=== PATIENT | male | born 1985 | race Caucasian/White ===

== ENCOUNTER 2018-09-15 18:29 | Emergency (ER) | payer MEDICAID, SELFPAY ==
[2018-09-15 18:30] VITALS: BP 186/97; PULSE 79; RESP 14; TEMP 36.1; O2SAT 98; BMI 44.7
--- NOTE | 2018-09-15 19:29 | ED.DCSUM_ITS ---
- ER Visit Summary Date of Service: 09/15/18 Chief Complaint: Dental pain History of Present Illness: The patient is a [address] Fritz. He reports that his dentist is Dr. Parekh. He reports he in the process of scheduling to get all of his upper teeth pulled. He has pain in his left maxill sofya canine that began 5 days ago. He describes a throbbing pain. Is 10 out of 10 severity. Is worsened by eating. He is taking Tylenol, ibuprofen, without relief. He is on clindamycin. Physical Examination: Vitals: Stable. Afebrile. Mouth: No trismus. No edema of the floor of the mouth. Pain with percussion of left maxillary canine. His left maxillary lateral incisor is eroded to the gumline. There is widespread dental decay. There is no focal abscess. No trismus or edema of the floor of his mouth. General: A&O x 3. NAD. Cardiovascular exam: Regular rate and rhythm, no murmur, rub or gallop. Respiratory exam: Clear to auscultation bilaterally. No wheezes or stridor. Abdominal exam: Soft, nontender, nondistended, normal bowel sounds. No peritoneal signs. Extremity: No clubbing, cyanosis, or edema. Emergency Department Course and Treatment: Patient is on Suboxone. I discussed them that I will not prescribe opiates because of this. He is already on clindamycin. He reports that he took a dose of Tylenol 30 minutes prior to arrival and a dose of ibuprofen 1 hour ago. Treatment Plan: Patient will be discharged instructions to follow-up with his dentist as soon as possible. Continue his clindamycin. Disposition: To home in improved and stable condition. Impression: 1. Dental pain. This note was generated with [employer] dictation software. It may contain incorrect words, spelling, and punctuation that were not noted in review of the chart prior to signing ED Disposition - Plan for ED Patient: Disposition: Home or Assisted Living Instructions: ED Tooth Pain Referrals: Dentist,Your [STAFF PHYSICIAN] - As soon as possible
--- NOTE | 2018-09-15 19:35 | ED.RN ---
THIS RN WENT SEE AND D/C PT AND PT WAS NO LONGER IN THE ROOM. UNABLE TO ASSESS PT OR PROVIDE PROPER D/C INSTRUCTIONS
== END 2018-09-15 19:35 | disposition home or self-care (01) ==
LOC: ED 19:39
PROVIDERS: Emergency Provider Emergency Medicine; Family Provider Family Medicine; PCP Family Medicine
DX: K08.89 Other specified disorders of teeth and supporting structures (principal); Z72.0 Tobacco use; Z79.2 Long term (current) use of antibiotics

== ENCOUNTER 2018-09-17 14:05 | Emergency (ER) | payer MEDICAID, SELFPAY ==
[2018-09-17 14:08] VITALS: BP 165/86; PULSE 86; RESP 17; TEMP 36.8; O2SAT 93; BMI 46.2
--- NOTE | 2018-09-17 14:25 | ED.VIS.GEN ---
History of Present Illness Chief Complaint: Dental Informant: Patient, Family Onset: Month(s) - Greater than 12 months Context: Sudden Onset Timing: Intermittent, Waxes and wanes Quality: Pain and swelling Location: Left upper incisors and left side of face Current Severity: Moderate Maximum Severity: Moderate Worsened by: Poor dentition Relieved by: Antibiotics and breathing occurs Associated Symptoms: No fever, chills, trismus or change in voice Narrative: Patient with recurrent infection. He apparently has problem with narrow airway and no dentist will extract his teeth. He has to have his teeth extracted operatively. He was referred to [facility]. He apparently has been trying to schedule this for greater than a year. There is no history of rheumatic fever, heart murmur, SBE, IV drug use or being immune suppressed. Prior similar symptoms: Yes Recent Illness/Hospitalization: Yes - Past Medical History (1) Dental abscess Status: Acute (2) Benign hypertension Status: Chronic (3) Depression Status: Chronic (4) Diabetes Status: Chronic (5) History of substance abuse Status: Chronic (6) Morbid obesity Status: Chronic (7) Obstructive sleep apnea Status: Chronic Past Medical History - Allergies and Home Meds Allergies/Adverse Reactions: Allergies No Known Allergies Allergy (Verified 09/17/18 14:06) Primary Care Physician: Chris Fritz MD [Primary Care Provider] - Prior records reviewed: Yes Surgical History: appendectomy Lives: With Family Smoking Status: Current every day smoker - Family History Maternal Family History: Reports: Diabetes, Hypertension Paternal Family History: Reports: Hypertension Review of Systems General: Denies: Chills, Fever, Malaise, Subjective, Sweats, Weight loss Eyes: Denies: Visual changes - bilaterally, Blurred Vision - bilaterally, Diplopia ENT: Reports: - - Facial swelling left side without redness. Denies: Bilateral ear pain, Rhinorrhea, Sore throat Cardiovascular: Denies: Chest pain, Palpitations Respiratory: Denies: Dyspnea, Cough, Dyspnea on exertion, Orthopnea, Paroxysmal nocturnal dyspnea Gastrointestinal: Denies: Nausea, Vomiting Skin: Reports: Abscess. Denies: Rash Neurological: Denies: Headache, Weakness Hematologic: Denies: Easy bruising, Easy bleeding Allergy: Denies: Uticaria, Swelling of the mouth Physical Exam Vital Signs/Narrative: Vital Signs Temp Pulse Resp BP Pulse Ox 04/25/19 14:08 98.3 F 86 17 165/86 H 93 Inital Vital Signs reviewed: Yes General: Well nourished, Well developed, Obese, No Acute Distress Head: Normocephalic, Atraumatic Eyes: Perrl, EOMI ENT: Moist mucous membranes, No rhinorrhea, TM's clear, - - She has significant dental decay involving the dentin and pulp of numerous teeth. Most likely source is decay of the upper left incisors and canine on the left. Teeth are eroded to the gumline. There is no fluctuance. There is spatial welling without evidence of cellulitis. There is no hyperesthesia of the infraorbital nerve. There is no ocular pain. Neck: Supple, Nontender Cardiovascular: Regular rate, Regular rhythm, No murmurs Respiratory: No distress, CTA bilaterally, Chest nontender Skin: Normal color, No rash Neurological: Alert, Oriented x3, Cranial nerves II-XII grossly intact, Normal Strength, Normal Sensation Psychological: Normal affect, Normal Mood Diagnostic/Tx/Re-eval - Medical Decision Making Patient with recurrent dental infection secondary to numerous dental caries. Will prescribe clindamycin and appropriate pain medicine. Explained the patient and family members you will need to contact [facility] to determine why the procedure has not been done. Patient and family member upset. They were informed IM in the emergency position and not a dentist my options are pain medicine and antibiotics. Definitive cares by a dentist. ED Disposition - Plan for ED Patient: Disposition: Home or Assisted Living Diagnosis: Dental abscess, Dental caries extending into pulp Instructions: Dental Abscess Prescriptions: Hydrocodone Bitart/Apap 5-325 [[place] 5MG-325MG] 1 tablet PO Q6H PRN PRN 3 Days #10 tablet PRN Reason: Pain Clindamycin HCl [Cleocin] 300 mg PO Q6H #40 capsule Referrals: Chris Fritz MD [Primary Care Provider] -
[2018-09-17] MEDS: Clindamycin HCl 150 MG Capsule 300 MG PO (14:41)
[2018-09-17 15:04] VITALS: RESP 18
== END 2018-09-17 15:04 | disposition home or self-care (01) ==
LOC: ED 14:47
PROVIDERS: Emergency Provider Emergency Medicine; Family Provider Family Medicine; PCP Family Medicine
DX: K04.7 Periapical abscess without sinus (principal); K02.9 Dental caries, unspecified; I10 Essential (primary) hypertension; E11.9 Type 2 diabetes mellitus without complications; E66.01 Morbid (severe) obesity due to excess calories; G47.33 Obstructive sleep apnea (adult) (pediatric); F17.200 Nicotine dependence, unspecified, uncomplicated; F32.9 Major depressive disorder, single episode, unspecified; Z79.899 Other long term (current) drug therapy
CPT/HCPCS: 99283

== ENCOUNTER 2018-10-22 15:01 | Emergency (ER) | payer MEDICAID, SELFPAY ==
[2018-10-22 15:02] VITALS: BP 135/87; PULSE 93; RESP 17; TEMP 37.3; O2SAT 97; BMI 46.7
--- NOTE | 2018-10-22 15:19 | EKG12_ITS ---
Test Reason : BLEEDING Blood Pressure : / mmHG Vent. Rate : 077 BPM Atrial Rate : 077 BPM P-R Int : 152 ms QRS Dur : 092 ms QT Int : 372 ms P-R-T Axes : 028 030 015 degrees QTc Int : 420 ms Normal sinus rhythm Normal ECG Confirmed by BRANT GUERRA, JACKLYN ([id number]), television news video editor SANGITA HARRIS ([id number]) on 10/26/2018 1:13:43 PM Referred By: FAB Confirmed By:JACKLYN GUO MD
--- NOTE | 2018-10-22 15:20 | ED.VIS.GEN ---
History of Present Illness Chief Complaint: Lower Extremity Injury Detail of Chief Complaint: bleeding varicose vein medial side right ankle Informant: Patient Onset: Today Context: Sudden Onset Timing: Continuous Quality: Leading varicose vein medial side right ankle Location: Showering Current Severity: Pressure wrap in place. Gauze saturated with blood Maximum Severity: Severe Worsened by: Scrubbing Relieved by: Pressure dressing Associated Symptoms: None Narrative: Patient is a 33-year-old male with a BMI of 46.8 who presents with bleeding from varicose vein medial side of right ankle. This occurred while he was scrubbing his skin. He states he lost a lot of blood. He denied orthostatic symptoms. He denied nausea or vomiting. He denied lightheadedness. He denies headache, ocular, visual or auditory symptoms. He denies cardiac or respiratory symptoms. He denies urologic symptoms. Prior similar symptoms: No Recent Illness/Hospitalization: No - Past Medical History (1) History of hypercholesterolemia Status: Acute (2) Benign hypertension Status: Chronic (3) Diabetes Status: Chronic (4) History of substance abuse Status: Chronic (5) Morbid obesity Status: Chronic (6) Obstructive sleep apnea Status: Chronic Past Medical History - Allergies and Home Meds Allergies/Adverse Reactions: Allergies No Known Allergies Allergy (Verified 10/22/18 15:02) Primary Care Physician: Chris Fritz MD [Primary Care Provider] - Prior records reviewed: Yes Surgical History: appendectomy Lives: Alone Smoking Status: Current every day smoker Drugs: - - Per old records history of drug use - Family History Maternal Family History: Reports: Diabetes, Hypertension Paternal Family History: Reports: Hypertension Review of Systems General: Reports: Sweats. Denies: Chills, Fever, Malaise, Subjective Eyes: Denies: Visual changes - bilaterally, Blurred Vision - bilaterally, Diplopia ENT: Denies: Rhinorrhea, Sore throat Cardiovascular: Denies: Chest pain, Palpitations, Heart racing Respiratory: Denies: Dyspnea, Cough, Dyspnea on exertion Gastrointestinal: Denies: Abdominal pain, Nausea, Vomiting, Diarrhea, Melena, Hematochezia Genitourinary: Denies: Dysuria, Hematuria, Frequency Musculoskeletal: Denies: Myalgias, Arthralgias, Neck pain, Back pain, Swelling, Extremity Pain Skin: Reports: Wounds. Denies: Rash Neurological: Denies: Headache, Weakness, Parasthesia, Numbness Endocrine: Denies: Polyuria, Polydipsia Hematologic: Denies: Easy bruising, Easy bleeding Allergy: Denies: Uticaria, Swelling of the mouth, Swelling of the tongue Physical Exam Vital Signs/Narrative: Vital Signs Temp Pulse Resp BP Pulse Ox 10/22/18 15:02 99.2 F H 93 17 135/87 H 97 Inital Vital Signs reviewed: Yes General: Well nourished, Well developed, Obese, No Acute Distress Head: Normocephalic, Atraumatic Eyes: Perrl, EOMI. Negative for: Pale conjunctiva, Scleral icterus, - ENT: Moist mucous membranes, No rhinorrhea Neck: Supple, Nontender, No lymphadenopathy, No JVD Cardiovascular: Regular rate, Regular rhythm, No murmurs, Normal S1, Normal S2 Respiratory: No distress, CTA bilaterally, Chest nontender Abdomen: Soft, Nontender, Nondistended, Normal bowel sounds, No masses Back: Nontender, Normal Inspection Extremities: Nontender, No edema, - - Dressing was removed and bleeding site identified. Eschar noted over bleeding site. Skin: Diaphoresis, - - Patient is flushed. Neurological: Alert, Oriented x3, Cranial nerves II-XII grossly intact, Normal Strength, Normal Sensation Psychological: Normal affect, Normal Mood Diagnostic/Tx/Re-eval Laboratory Results 10/22/18 10/22/18 15:30 15:30 WBC 11.9 H RBC 4.88 Hgb 14.7 Hct 43.2 MCV 88.5 MCH 30.1 MCHC 34.0 RDW 13.5 RDW Differential 43.3 Plt Count 177 MPV 10.9 Immature Gran % (Auto) 1.200 H Neut % (Auto) 61.0 Lymph % (Auto) 26.2 [place] % (Auto) 9.8 Eos % (Auto) 1.5 Baso % (Auto) 0.3 Absolute Neuts (auto) 7.3 Absolute Lymphs (auto) 3.12 Total Counted Not Reportable Sodium 136 Potassium 3.9 Chloride 100 Carbon Dioxide 31.0 Anion Gap 5 BUN 10 Creatinine 0.82 Estim Creat Clear Calc 141.95 Est GFR (MDRD) Af Amer 139 Est GFR (MDRD) Non-Af 115 BUN/Creatinine Ratio 12.1 Glucose 190 H Calcium 8.7 - Rhythm Strip Rhythm Strip: Sinus Rhythm Rate: 82 Ectopy: None - EKG Initial EKG Interpretation: Sinus Rhythm - Ventricular rate of 77. KS interval, cures duration, QT interval and axis are normal. The EKG is normal. - Medical Decision Making Patient with bleeding from varicose vein secondary to trauma. Since he has history of diabetes, substance abuse, hypertension and elevated cholesterol will obtain CBC, BMP and EKG since he is flushed and diaphoretic. This does not represent a vagal response. This may be an adverse reaction to medication and specifically psychotropic meds. Blood sugar is elevated at 190. This is secondary to his diabetes. His work-up was unremarkable. Patient was reassessed at 1600. He is no longer diaphoretic. He states he feels normal. Procedures Procedure(s): Area was prepped draped sterile manner. The area was anesthetized by local metrician with 1% lidocaine, 1 cc. [id number] stitch was placed using 4-0 Vicryl. Bleeding was controlled. ED Disposition - Plan for ED Patient: Disposition: Home or Assisted Living Diagnosis: Bleeding from varicose veins of right lower extremity, Hyperglycemia, unspecified, Diaphoresis Instructions: ED Veins Varicose, ED Hyperglycemia New Susp Diabetes Referrals: Chris Fritz MD [Primary Care Provider] - 5-7 Days Additional Instructions: You should follow-up with Dr. Fritz in 5 to 7 days to have blood sugar reassessed. Your blood sugar was 190.
--- NOTE | 2018-10-22 15:30 | ED.RN ---
PT WITH RUPTURED VERICOSE VEIN. BLEEDING STOPPED. PT DENIES ANY PAIN. REPORTS HE WAS SCRUBBING HIS ANKLE IN THE SHOWER AND IT BURST.
[2018-10-22 15:40] LABS: Absolute Lymphocyte Count 3.12 X10^3/ul (0.83-4.51); Absolute Neutrophil Count 7.3 X10^3/uL (2.0-7.7); Basophil# 0.04 X10^3/uL; Basophil% 0.3 % (0-1); Eosinophil# 0.18 X10^3/uL; Eosinophils% 1.5 % (0-5); Hematocrit 43.2 % (40-54); Hemoglobin 14.7 g/dl (13.0-16.5); Lymphocyte # 3.12 X10^3/ul (4.0); Lymphocyte % 26.2 % (19-41); Mean Corpuscular Hgb 30.1 pg (27.0-32.0); Mean Corpuscular Volume 88.5 fL (80-94); Mean Platelet Vol. 10.9 fl (6.2-12.0); Monocyte# 1.17 X10^3/uL; Monocyte% 9.8 % (0-10); Neutrophil # 7.28 X10^3/uL (2.7-7.7); Platelet Count 177 K/mm3 (150-450); RBC Distribution Width CV 13.5 % (11.6-14.6); RBC Distribution Width SD 43.3 fl (35.1-43.9); Red Blood Count 4.88 M/mm3 (4.6-6.2); White Blood Count 11.9 K/mm3 (4.4-11.0)
[2018-10-22 15:41] LABS: POSITIVE COUNT NO; POSITIVE DIFFERENTIAL NO; POSITIVE MORPHOLOGY NO
[2018-10-22 15:59] LABS: Anion Gap 5 (5-15); BUN 10 mg/dL (7-18); BUN/Creat Ratio 12.1 RATIO (10-20); Calcium,Total 8.7 mg/dL (8.5-10.1); Chloride 100 mmol/L (98-107); Creatinine, Serum 0.82 mg/dL (0.70-1.30); EST Glomerular Filtration Rate 115 mL/min (>60); Est Glom Filt Rate - Afr Amer 139 mL/min (>60); Estimated Creatinine Clearance 141.95 ml/min; Glucose 190 mg/dL (74-106); Potassium 3.9 mmol/L (3.5-5.1); Sodium Level 136 mmol/L (136-145)
== END 2018-10-22 16:42 | disposition home or self-care (01) ==
PROVIDERS: Emergency Provider Emergency Medicine; Family Provider Family Medicine; PCP Family Medicine
DX: I83.891 Varicose veins of right lower extremity with other complications (principal); R61 Generalized hyperhidrosis; E11.65 Type 2 diabetes mellitus with hyperglycemia; I10 Essential (primary) hypertension; E66.01 Morbid (severe) obesity due to excess calories; G47.33 Obstructive sleep apnea (adult) (pediatric); Z68.42 Body mass index [BMI] 45.0-49.9, adult; F17.200 Nicotine dependence, unspecified, uncomplicated; Z79.899 Other long term (current) drug therapy
CPT/HCPCS: 35226; 80048; 85025; 93005; 99285

== ENCOUNTER 2019-03-31 22:33 | Emergency (ER) | payer MEDICAID, SELFPAY ==
[2019-03-31 22:35] VITALS: BP 152/82; PULSE 87; RESP 18; TEMP 37.2; O2SAT 94; BMI 47.7
--- NOTE | 2019-03-31 22:42 | ED.VIS.GEN ---
History of Present Illness Chief Complaint: Wound Informant: Patient Narrative: Stated he accidentally rubbed a varicose vein with a sock and it broke open and bled approximately 30 minutes ago. EMS was called and they place a dressing on it was stopped bleeding. No significant trauma otherwise. He had a different varicose vein bleed a few months ago that required a stitch. He is on no blood thinners. Current severity is mild. - Past Medical History (1) Acute asthma exacerbation Status: Acute (2) Bronchitis Status: Acute (3) Dental abscess Status: Acute (4) History of hypercholesterolemia Status: Acute (5) Benign hypertension Status: Chronic (6) Depression Status: Chronic (7) Diabetes Status: Chronic (8) History of substance abuse Status: Chronic (9) Morbid obesity Status: Chronic (10) Obstructive sleep apnea Status: Chronic Past Medical History - Allergies and Home Meds Allergies/Adverse Reactions: Allergies No Known Allergies Allergy (Verified 10/22/18 15:02) Primary Care Physician: Chris Fritz MD [Primary Care Provider] - Prior records reviewed: Yes Past Medical History: - - See problem list Surgical History: appendectomy Lives: With Family Smoking Status: Current every day smoker Alcohol: None Drugs: None - Family History Maternal Family History: Reports: Diabetes, Hypertension Paternal Family History: Reports: Hypertension Review of Systems General: Denies: Chills, Fever, Sweats Eyes: Denies: Visual changes - bilaterally, Diplopia ENT: Denies: Rhinorrhea, Sore throat Cardiovascular: Denies: Chest pain, Palpitations Respiratory: Denies: Dyspnea, Cough, Dyspnea on exertion Gastrointestinal: Denies: Abdominal pain, Nausea, Vomiting, Diarrhea, Melena, Hematochezia Genitourinary: Denies: Dysuria, Hematuria, Frequency Musculoskeletal: Denies: Back pain, Extremity Pain Skin: Reports: Wounds. Denies: Rash Neurological: Denies: Headache, Weakness, Numbness Physical Exam Vital Signs/Narrative: Vital Signs Temp Pulse Resp BP Pulse Ox 03/31/19 22:35 99.0 F 87 18 152/82 H 94 General: Well nourished, Well developed, No Acute Distress Head: Normocephalic, Atraumatic Eyes: Perrl, EOMI ENT: Moist mucous membranes, No rhinorrhea Neck: Supple, Nontender Cardiovascular: Regular rate, Regular rhythm, No murmurs Respiratory: No distress, CTA bilaterally, Chest nontender Abdomen: Soft, Nontender, Nondistended, Normal bowel sounds Back: Nontender, Normal Inspection Extremities: Nontender, No edema Skin: Normal color, No rash, - - Has a varicose vein on his medial calf that is bleeding further. Neurological: Alert, Oriented x3, Cranial nerves II-XII grossly intact, Normal Strength, Normal Sensation Psychological: Normal affect, Normal Mood Diagnostic/Tx/Re-eval - Medical Decision Making It stopped with pressure alone. His bandage was replaced and Sean wrap was placed. He was watch for 30 minutes with no further bleeding. Resting comfortably. I do not think he needs a stitch in this area will be discharged to follow-up ED Disposition - Plan for ED Patient: Disposition: Home or Assisted Living Diagnosis: Bleeding from varicose vein Instructions: Varicose Veins Referrals: Chris Fritz MD [Primary Care Provider] -
--- NOTE | 2019-03-31 23:31 | ED.RN ---
Educated pt about holding pressure, need for varicose vein specialist. All questions answered, no further concerns.
== END 2019-03-31 23:31 | disposition home or self-care (01) ==
LOC: ED 22:50
PROVIDERS: Emergency Provider Emergency Medicine; Family Provider Family Medicine; PCP Family Medicine
DX: I83.891 Varicose veins of right lower extremity with other complications (principal); J45.909 Unspecified asthma, uncomplicated; E78.00 Pure hypercholesterolemia, unspecified; I10 Essential (primary) hypertension; F32.9 Major depressive disorder, single episode, unspecified; E11.9 Type 2 diabetes mellitus without complications; E66.01 Morbid (severe) obesity due to excess calories; G47.33 Obstructive sleep apnea (adult) (pediatric); F17.200 Nicotine dependence, unspecified, uncomplicated; Z79.84 Long term (current) use of oral hypoglycemic drugs; Z79.899 Other long term (current) drug therapy
CPT/HCPCS: 99284

== ENCOUNTER 2019-06-24 22:24 | Emergency (ER) | payer MEDICAID, SELFPAY ==
[2019-06-24 22:26] VITALS: BP 148/86; PULSE 79; RESP 16; TEMP 36.7; O2SAT 93; BMI 46.7
--- NOTE | 2019-06-24 23:31 | ED.VIS.GEN ---
History of Present Illness Chief Complaint: Lower Extremity Injury Narrative: Patient presents the emergency department out of concern for a DVT. Patient had an unknown vein procedure performed by an unknown physician at [facility]. He has an ultrasound scheduled tomorrow at 1300 hrs. for monitoring of the veins. He states that today he developed some swelling of the proximal inner thigh. He denies any chest pain shortness of breath. No back pain or shoulder pain. No cough. He notes that the rest the leg is not swollen it seems to be confined mostly to the proximal medial thigh. No fevers. He states he is not on any blood thinners and is not on any antibiotics. Past Medical History - Allergies and Home Meds Allergies/Adverse Reactions: Allergies No Known Allergies Allergy (Verified 06/24/19 22:28) Primary Care Physician: Chris Fritz MD [Primary Care Provider] - Surgical History: appendectomy Smoking Status: Current every day smoker - Family History Maternal Family History: Reports: Diabetes, Hypertension Paternal Family History: Reports: Hypertension Review of Systems General: Denies: Chills, Fever, Sweats Eyes: Denies: Visual changes - bilaterally, Diplopia ENT: Denies: Rhinorrhea, Sore throat Cardiovascular: Denies: Chest pain, Palpitations Respiratory: Denies: Dyspnea, Cough, Dyspnea on exertion Gastrointestinal: Denies: Abdominal pain, Nausea, Vomiting, Diarrhea, Melena, Hematochezia Genitourinary: Denies: Dysuria, Hematuria, Frequency Musculoskeletal: Reports: - - See HPI. Denies: Back pain, Extremity Pain Skin: Denies: Rash, Wounds Neurological: Denies: Headache, Weakness, Numbness Physical Exam Vital Signs/Narrative: Vital Signs Temp Pulse Resp BP Pulse Ox 06/24/19 22:26 98.0 F 79 16 148/86 H 93 Inital Vital Signs reviewed: Yes General: Well nourished, Well developed, Obese, No Acute Distress Head: Normocephalic, Atraumatic Eyes: Perrl, EOMI ENT: Moist mucous membranes, No rhinorrhea Neck: Supple, Nontender Cardiovascular: Regular rate, Regular rhythm, No murmurs Respiratory: No distress, CTA bilaterally, Chest nontender Abdomen: Soft, Nontender, Nondistended, Normal bowel sounds Back: Nontender, Normal Inspection Extremities: Nontender, No edema, - - No significant leg swelling when compared to the left side. The right proximal medial thigh shows an area that is slightly swollen with a faint area of erythema. It is not significantly tender. The place that he points out where a needle was inserted into the veins appear otherwise uncomplicated. Skin: Normal color, No rash Neurological: Alert, Oriented x3, Cranial nerves II-XII grossly intact, Normal Strength, Normal Sensation Psychological: Normal affect, Normal Mood Diagnostic/Tx/Re-eval - Medical Decision Making Currently the patient exhibits no signs or symptoms of pulmonary embolism. There is no distal leg swelling to suggest DVT. There is a faint area of erythema and I question whether or not this localized swelling is related to a cellulitis. I am getting start the patient on some Keflex. Also given a dose of Lovenox. He is to call his surgeon in the morning and complete his duplex ultrasound. ED Disposition - Plan for ED Patient: Disposition: Home or Assisted Living Diagnosis: Redness and swelling of thigh Instructions: Cellulitis Prescriptions: Cephalexin [Keflex] 500 mg PO 5X/DAY #28 cap Prescription Printed Additional Instructions: Please call your surgeon's office in the morning. Please go to your ultrasound appointment at 1300.
[2019-06-25] MEDS: Enoxaparin 150 MG/ML Syringe SC
[2019-06-25] MEDS: Cephalexin 250 MG Capsule 500 MG PO
== END 2019-06-25 00:24 | disposition home or self-care (01) ==
PROVIDERS: Emergency Provider Emergency Medicine; PCP Family Medicine
DX: M79.89 Other specified soft tissue disorders (principal); L53.9 Erythematous condition, unspecified; F17.200 Nicotine dependence, unspecified, uncomplicated; E66.9 Obesity, unspecified
CPT/HCPCS: 96372; 99283

== ENCOUNTER 2019-11-21 15:34 | Emergency (ER) | payer MEDICAID, SELFPAY ==
[2019-11-21 15:36] VITALS: BP 135/84; PULSE 105; RESP 17; TEMP 36.6; O2SAT 93; BMI 44.7
--- NOTE | 2019-11-21 15:43 | ED.DCSUM_ITS ---
History of Present Illness Informant: Patient Occurred: Days - 4 days Mechanism/Context: Same level fall, Trip, Slip Usually ambulates: Without assistance Location: left ribs Quality of Pain: Stabbing Current Severity: Moderate Maximum Severity: Moderate Worsened by: movement, deep breathing Relieved by: nothing Associated Symptoms: Negative for: Parasthesias, Weakness, Loss of function, Inability to ambulate, Loss of consciousness, Amnesia Narrative: 34-year-old male presents with left sided rib pain. He was jogging in the park 4 days ago fell on his left side injuring his left ribs. He did not hit his head he did not lose consciousness and he denies any other injuries. He has been having continued left-sided rib pain with deep breathing which prompts his visit to the emergency department today. He is not on blood thinners. He is not short of breath. No coughing or hemoptysis. No abdominal pain or back pain. He has no vomiting he has no hematuria or melena or hematochezia. Rest of his review of systems negative Tetanus Immunization: Unknown Prior similar symptoms: No Recent Illness/Hospitalization: No <Leandro Solitario - Last Filed: 11/21/19 16:54> <Flores Bennett - Last Filed: 11/21/19 17:04> Chief Complaint: Chest Other Past Medical History Prior records reviewed: Yes Past Medical History: - - polysubstance abuse on suboxone Surgical History: appendectomy Smoking Status: Current every day smoker Alcohol: Occasional Drugs: None - Family History Maternal Family History: Reports: Diabetes, Hypertension Paternal Family History: Reports: Hypertension <Leandro Solitario - Last Filed: 11/21/19 16:54> <Flores Bennett - Last Filed: 11/21/19 17:04> - Allergies and Home Meds Allergies/Adverse Reactions: Allergies No Known Allergies Allergy (Verified 11/21/19 15:35) Primary Care Physician: Chris Fritz MD [Primary Care Provider] - Review of Systems All systems negative except as indicated General: Denies: Chills, Fever, Sweats Eyes: Denies: Visual changes - bilaterally, Diplopia ENT: Denies: Rhinorrhea, Sore throat Cardiovascular: Denies: Chest pain, Palpitations Respiratory: Reports: - - left rib pain. Denies: Dyspnea, Cough, Sputum, Dyspnea on exertion, Orthopnea, Paroxysmal nocturnal dyspnea Gastrointestinal: Denies: Abdominal pain, Nausea, Vomiting, Diarrhea, Melena, Hematochezia Genitourinary: Denies: Dysuria, Hematuria, Frequency Musculoskeletal: Denies: Neck pain, Back pain, Extremity Pain Skin: Denies: Rash, Wounds Neurological: Denies: Headache, Weakness, Numbness <Leandro Solitario - Last Filed: 11/21/19 16:54> Physical Exam Vital Signs/Narrative: Vital Signs Temp Pulse Resp BP Pulse Ox 11/21/19 15:36 97.8 F 105 H 17 135/84 H 93 Inital Vital Signs reviewed: Yes General: Well nourished, Well developed Head: Normocephalic, Atraumatic Eyes: Perrl, EOMI ENT: TM's clear, No hemotympanum or drainage, No trauma Neck: Nontender, Full ROM. Negative for: Spinal Tenderness, Paraspinal Tenderness Cardiovascular: Regular rate, Regular rhythm, No murmurs Respiratory: No distress, CTA bilaterally, Chest tenderness - Normal inspection of chest and back and left ribs. No bruising or swelling. He is diffusely tender mostly under his left nipple. No crepitus is palpated. Abdomen: Soft, Nontender, Nondistended, Normal bowel sounds Back: Nontender. Negative for: CVA Tenderness - Right, CVA Tenderness - Left, Spinal Tenderness, Paraspinal Tenderness Skin: Normal color, No rash Neurological: Alert, Oriented x3, Cranial nerves II-XII grossly intact, Normal Strength, Normal Sensation Psychological: Normal affect, Normal Mood <Leandro Solitario - Last Filed: 11/21/19 16:54> Vital Signs/Narrative: Vital Signs Temp Pulse Resp BP Pulse Ox 11/21/19 15:36 97.8 F 105 H 17 135/84 H 93 <Flores Bennett - Last Filed: 11/21/19 17:04> Diagnostic/Tx/Re-eval Impressions Ribs w/Chest X-Ray 11/21/19 15:50 IMPRESSION: RIBS: Normal x-ray examination of the ribs. CHEST: No acute cardiopulmonary disease or major interval change. Electronically Signed: Laith Garcia DO at 16:51 EDT Tel [phone], Service support , 11/21/19 15:50 Xray Ribs [Ribs Uni Min 3V w/PA Chest] [RAD] Stat - Medical Decision Making Patient declined analgesia. X-ray of the chest with a left-sided rib series interpreted by the emergency physician and the radiologist shows no acute abnormality. Patient is on Suboxone and does not wish to have a prescription for anti- inflammatories. He will ice he will rest and follow-up with his doctor return for worsening symptoms which we discussed. <Leandro Solitario - Last Filed: 11/21/19 16:54> - Medical Decision Making Patient seen and evaluated with physicians educational assistant. Patient was independently seen and examined. Patient presents with left anterior rib pain after a fall 4 days ago. He denies shortness of breath but does report increased pain with deep breath. Head neck examination unremarkable. Heart is regular rate and rhythm. Lung sounds are clear and equal bilaterally. Reproducible chest wall tenderness is noted of the left anterior chest. No crepitus noted. Abdomen is soft and nontender. Neuro exam unremarkable. Rib series obtained and reveals no evidence of acute fracture. No pneumothorax noted. Disposition: Discharge Impression: Rib contusion <Flores Bennett - Last Filed: 11/21/19 17:04> ED Disposition <Leandro Solitario - Last Filed: 11/21/19 16:54> <Flores Bennett - Last Filed: 11/21/19 17:04> - Plan for ED Patient: Disposition: Home or Assisted Living Diagnosis: Contusion of rib on left side, History of substance abuse Instructions: ED CHEST CONTUSION Referrals: Chris Fritz MD [Primary Care Provider] -
--- NOTE | 2019-11-21 15:50 | RAD_ITS ---
STUDY: X-RAY - UNILATERAL RIBS ( LEFT ) WITH CHEST REASON FOR EXAM: Male, 34 years old. Fall while running. Left-sided chest pain. TECHNIQUE - RIBS: 4 view(s) of the ribs. TECHNIQUE - CHEST: Single PA view of the chest. COMPARISON: Chest, May 22, 2016. FINDINGS - RIBS: Normal visualized ribs without a demonstrated fracture. FINDINGS - CHEST: The lungs are clear and expanded. There is no demonstrated pleural abnormality. Normal size heart. Normal mediastinum and luis. Normal visualized pulmonary arteries. Normal visualized aortic arch and descending thoracic aorta. Normal visualized thoracic spine. Normal visualized ribs, clavicles, and shoulders. There is no demonstrated abnormality of the visualized soft tissue structures of the upper abdomen. RAD/Ribs Uni Min 3V w/PA Chest IMPRESSION: RIBS: Normal x-ray examination of the ribs. CHEST: No acute cardiopulmonary disease or major interval change. Electronically Signed: Laith Garcia DO at 16:51 EDT Tel [phone], Service support ,
== END 2019-11-21 17:03 | disposition home or self-care (01) ==
PROVIDERS: Emergency Provider Physician Assistant Medical; PCP Family Medicine
DX: S20.212A Contusion of left front wall of thorax, initial encounter (principal); F17.200 Nicotine dependence, unspecified, uncomplicated; F19.10 Other psychoactive substance abuse, uncomplicated; W18.30XA Fall on same level, unspecified, initial encounter; Y93.02 Activity, running; Y92.830 Public park as the place of occurrence of the external cause; Y99.8 Other external cause status
CPT/HCPCS: 71101; 99282

== ENCOUNTER → 2024-08-23 | Outpatient (CLI) | payer MEDICAID, SELFPAY ==
--- NOTE | 2024-08-23 15:20 | CT_ITS ---
PROCEDURE: SINUS/FACIAL BONE REASON FOR EXAM: OTHER CHRONIC SINUSITIS TECHNIQUE: CT of the paranasal sinuses without contrast. Coronal and Sagittal reconstruction series were provided. One or more dose reduction techniques were used (e.g., Automated exposure control, adjustment of the mA and/or kV according to patient size, use of iterative reconstruction technique). COMPARISON: None. FINDINGS: Frontal: Unremarkable. Ethmoid: Unremarkable. Sphenoid: Unremarkable. Maxillary: Partial opacification/mucosal thickening of the right maxillary sinus. Left maxillary sinuses unremarkable. Turbinates: Symmetrical. Nasal Septum: Midline. Mastoids/Middle Ears: Unremarkable. CT/Sinus/Facial Bone IMPRESSION: Mucosal thickening/partial opacification of the right maxillary sinus. Reading Location: [id number]
== END | disposition home or self-care (01) ==
LOC: CT 15:13
PROVIDERS: PCP Family Medicine; Referring Provider Otolaryngology; Visit Provider Otolaryngology
DX: J32.8 Other chronic sinusitis (principal)
CPT/HCPCS: 70486

== ENCOUNTER 2025-03-02 12:49 | Observation (INO) | payer MEDICAID, SELFPAY ==
[2025-03-02] VITALS (8 sets, daily range): BP systolic 119–158; BP diastolic 58–98; PULSE 51–78; RESP 16–26; TEMP 36.1–37.1; O2SAT 95–98; BMI 44.1
[2025-03-02] MEDS: 0.9% Normal Saline (1000mL) 1,000 ML 999 ML IV (13:33)
[2025-03-02] MEDS: Ampicillin/Sulbactam 3 GM in 0.9% Normal Saline (100mL MB+) 100 ML IV ×2 (13:34→19:13)
[2025-03-02] MEDS: Lidocaine 1% (20 ml mdv) 20 ML Vial INFILT (13:34)
[2025-03-02 13:37] LABS: Hematocrit 46.7 % (40-54); Hemoglobin 15.7 g/dL (13.0-16.5); Immature Granulocytes Count 0.120 X10^3/uL (0.0-0.0); Mean Corp Hgb Conc 33.6 g/dL (32-36); Mean Corpuscular Volume 86.6 fL (80-94); Mean Platelet Vol. 10.9 fl (6.2-12.0); NRBC Flagged by Analyzer 0 % (0-5); Platelet Count 178 K/mm3 (150-450); RBC Distribution Width CV 13.3 % (11.6-14.6); RBC Distribution Width SD 41.7 fl (35.1-43.9); Red Blood Count 5.39 M/mm3 (4.6-6.2); White Blood Count 11.8 K/mm3 (4.4-11.0)
[2025-03-02 13:47] LABS: Partial Thromboplast Time 28.5 Seconds (24.1-36.2); Prothrombin Time (Protime)PT. 14.0 SECONDS (11.7-14.9)
[2025-03-02 13:57] LABS: Mucous, Urine 0 SEEN /hpf (<or=2+); Red Blood Cells-Urine 0 SEEN /hpf (0-5); Squamous Epithelial Cells - UA 0 SEEN /hpf (0-5)
[2025-03-02 13:59] LABS: AST(SGOT) 20 U/L (<=37); Alanine Aminotransfer ALT/SGPT 16 U/L (<=46); Albumin, Serum 4.4 g/dL (3.5-5.0); Alkaline Phosphatase 99 U/L (40-129); Anion Gap 11 (5-15); BUN 7 mg/dL (4-19); BUN/Creat Ratio 9.9 RATIO (10-20); Calcium,Total 9.1 mg/dL (7.6-11.0); Carbon Dioxide 29.3 mmol/L (21.0-32.0); Chloride 98 mmol/L (98-108); Estimated Creatinine Clearance 195.06 ml/min (50-250); Globulin 3.9 g/dL (2.2-4.2); Glucose 207 mg/dL (70-99); Potassium 3.4 mmol/L (3.3-5.1)
[2025-03-02 14:03] LABS: Color, Urine Yellow (Yellow); Glucose, Dipstick 50 mg/dl (Normal); Ketone-Dipstick 5 mg/dl (Negative); Leukocyte Esterase-Dipstick 25 /ul (Negative); Nitrite-Dipstick Negative (Negative); Occult Blood-Urine 10 /ul (Negative); Protein-Dipstick 100 mg/dl (Negative); Specific Gravity, Urine 1.025 (1.002-1.030); Urine Bilirubin Dipstick Negative (Negative)
--- NOTE | 2025-03-02 14:40 | EX.ED.DYSGE1 ---
HPI History of Present Illness Chief Complaint: Nausea/Vomiting Detail of Chief Complaint: Nausea vomiting, polydipsia, polyuria and abscess left groin Informant: patient Onset/Context/Timing Onset: Days and Weeks (Infection noted approxi-1 week ago.) Context: Sudden Onset Timing: Continuous Quality: Abscess left groin Location: Left groin between the scrotum and proximal medial thigh Current Severity: Moderate Maximum Severity: Moderate Worsened by: Walking, palpation Relieved by: Nothing Associated Symptoms Associated Symptoms: Chills and attempted to aspirate/squeeze pus out yesterday Narrative Narrative: Patient is a 40-year-old gentleman. He has history of diabetes, obesity, asthma, obstructive sleep apnea on Suboxone for the past 10 years. He has prior history of opiate dependency. Has been opiate free other than Suboxone for 12 years. He presents because of chills, nausea vomiting and abscess left groin area. Patient has no allergies to antibiotics. Patient does endorse probably dip Iesha, polyuria and nocturia. Prior similar symptoms: No Recent Illness/Hospitalization: No PFSH PFS Medical History Benign hypertension Depression Diabetes Acute asthma exacerbation Morbid obesity History of substance abuse Obstructive sleep apnea History of hypercholesterolemia Home Medications ?Medication ?Instructions ?Recorded ?Last Taken ?Type lisinopril 40 mg tablet 40 mg PO DAILY 04/15/13 05/22/16 History buprenorphine 8 mg-naloxone 2 mg 12 ea sublingual DAILY 04/13/15 05/22/16 History sublingual film (Suboxone) bisoprolol 5 1 tab PO DAILY 05/22/16 05/22/16 History mg-hydrochlorothiazide 6.25 mg tablet Allergy/AdvReac Type Severity Reaction Status Date / Time No Known Allergies Allergy Verified 03/02/25 12:59 Family History no significant family his Surgical History Total knee replacement status History of appendectomy Social History household members: family current occupational status: unemployed Smoking Status: Current every day smoker tobacco type: cigarettes ROS ROS ED Constitutional Constitutional ED: Reports chills and sweats; Denies fever(s) Eyes Eyes: Denies blurry vision or change in vision ENT ENT ED: Denies ear pain, rhinorrhea or sore throat Cardiovascular Cardiovascular: Denies chest pain or palpitations Respiratory/Chest Respiratory/Chest: Denies cough, dyspnea or dyspnea on exertion Gastrointestinal Gastrointestinal: Reports nausea and vomiting; Denies abdominal pain or diarrhea Genitourinary Genitourinary ED: Reports urinary frequency; Denies dysuria or hematuria Musculoskeletal Musculoskeletal: Denies arthralgias or myalgias Integumentary Reports abscess and rash Neurologic Neurologic: Reports weakness; Denies headache(s) or paresthesias Endocrine Endocrinology: Reports polydipsia and polyuria; Denies cold intolerance or heat intolerance Hematologic/Lymphatic Hematologic/Lymphatic: Reports systems reviewed and no addt'l complaints, except as documented EXAM Physical Exam Const Vital Signs: 03/02/25 12:55 03/02/25 13:03 03/02/25 14:00 Temperature 97.5 F L 97.5 F L 98.7 F Temperature Source Oral Oral Oral Pulse Rate 73 61 51 L Respiratory Rate 26 H 22 H 17 Blood Pressure 135/82 H 139/58 H 147/98 H Blood Pressure Mean 99 85 114 Pulse Ox 98 97 95 Oxygen Delivery Method Room Air Room Air Room Air 03/02/25 14:49 Temperature Temperature Source Pulse Rate Respiratory Rate Blood Pressure Blood Pressure Mean Pulse Ox Oxygen Delivery Method Room Air Positive well nourished and well developed Constitutional Narrative: Patient is flushed and appears ill. Vital signs are remarkable for tachypnea and elevated blood pressure. General Appearance ED: well developed HEENT Reports dry mucous membranes HEENT Narrative: Head is atraumatic and normocephalic. Ears normal. Posterior pharynx is normal Mouth ED: Yes dry mucous membranes Mouth: dry mucous membranes Eyes PERRL and EOMs intact bilaterally General Eye ED: Negative for pale conjunctiva or scleral icterus Neck no lymphadenopathy, supple and no JVD Chest Wall inspection of chest normal and palpation of chest normal Resp normal respiratory effort and clear to auscultation bilaterally Cardio regular rate, regular rhythm, S1 normal heart sound, S2 normal heart sound and no murmurs GI normal to inspection, nondistended, normoactive bowel sounds, non-tender, non-distended and no masses; Negative for hepatosplenomegaly Narrative: Patient has an abscess between his scrotum and thigh. It does not involve the scrotum. There is left inguinal lymphadenopathy. There is fluctuance in the area with cellulitis as well Extremity Negative for normal to inspection Extremity Narrative: Chronic venous stasis dermatitis. Neuro oriented x3 and CN's II-XII intact bilaterally Sensorium / Orientation: alert Psych mental status grossly normal Skin No no rashes or lesions noted and No no wounds Skin Narrative: Abscess with cellulitis left groin region Sepsis Attestation Sepsis Alert: Yes Sepsis Attestation: Agree w/Sepsis Date exam was performed: 03/02/25 Time exam was performed: 13:12 Possible Source of Sepsis: Skin/soft tissue and Wound Sepsis Organ Dysfunction Criteria Present: Lactic Acid > 2 mmol/L Supportive Findings: Patient by definition does not have sepsis since he only has 1 endorgan dysfunction i.e. like elevated lactate. MDM MDM MDM Narrative Medical decision making narrative: With patient being tachypneic obvious source of infection concerned he may have sepsis. Sepsis workup was initiated. Blood cultures were obtained. Patient will require I&D of his left groin area abscess. Will obtain EKG to assess for any dysrhythmia or ischemic changes. Since he is diabetic comprehensive metabolic panel was obtained to assess CO2 anion gap as well as renal function. CBC to assess white count differential. Lactate was obtained as well. UA to assess for ketones, specific gravity. Doubt he has a urinary tract infection. History & Record Review Additional record(s) reviewed:: Prior outpatient record (Outpatient reports for obstructive sleep apnea from outside facility noted. Otherwise no records available through [facility] Lab Data Attestation: I reviewed the patient's lab results. Lab results narrative: White count is slightly elevated 11.8 thousand with no bandemia. H&H is normal. Comprehensive metabolic panel is marked for glucose of 207 with normal CO2 anion gap. Lactate is elevated 2.4. Urinalysis unremarkable specific gravity 1.025 with protein, glucose and ketones noted. Microscopic has 0 RBCs, WBCs and bacteria. Labs: Laboratory Results - last 24 hr 03/02/25 03/02/25 13:25 13:45 WBC 11.8 H RBC 5.39 Hgb 15.7 Hct 46.7 MCV 86.6 MCH 29.1 MCHC 33.6 RDW Std Deviation 41.7 RDW Coeff of Jas 13.3 Plt Count 178 MPV 10.9 Immature Gran % (Auto) 1.000 H Neut % (Auto) 70.0 Lymph % (Auto) 17.8 L Hendricks % (Auto) 9.5 Eos % (Auto) 1.4 Baso % (Auto) 0.3 Absolute Neuts (auto) 8.2 H Absolute Lymphs (auto) 2.09 Nucleated RBC % 0 PT 14.0 INR 1.1 APTT 28.5 Sodium 137 Potassium 3.4 Chloride 98 Carbon Dioxide 29.3 Anion Gap 11 BUN 7 Creatinine 0.76 Estim Creat Clear Calc 195.06 Est GFR (MDRD) Non-Af 117 BUN/Creatinine Ratio 9.9 L Glucose 207 H Lactic Acid 2.4 H* Calcium 9.1 Total Bilirubin 0.46 AST 20 ALT 16 Alkaline Phosphatase 99 Total Protein 8.3 Albumin 4.4 Globulin 3.9 Albumin/Globulin Ratio 1.1 Urine Color Yellow Urine Clarity Sl. Cloudy Urine pH 6.0 Ur Specific [place] 1.025 Urine Protein 100 H Urine Glucose (UA) 50 H Urine Ketones 5 H Urine Occult Blood 10 H Urine Nitrite Negative Urine Bilirubin Negative Urine Urobilinogen Normal Ur Leukocyte Esterase 25 H Urine RBC 0 SEEN Urine WBC 0 SEEN Ur Squamous Epith Cells 0 SEEN Urine Bacteria 0 SEEN Urine Mucus 0 SEEN EKG Initial EKG: Attestation: I personally reviewed and interpreted this EKG as follows: Interpretation: Sinus Rhythm (Mary is a 59. ME interval is 154 ms. Cures duration 96 ms. QT duration 424 ms. [place] is normal) Management Discussion w/another healthcare provider: Hospitalist (Case discussed with Dr. Naresh Steiner.) Treatment and Re-Evaluation :: Patient was started on Unasyn and vancomycin per sepsis treatment for skin infection. Since this is an abscess concerned this may represent MRSA and reason vancomycin was added to the Unasyn. Procedures Other Procedures Procedure(s): Patient was prepped in sterile manner. Area was cleansed with surgical lens. Abscess was anesthetized by local metrician and field block. Incision was made with 10 blade. Incision was 2 cm. There was purulent material that noted. Culture was obtained. Blunt dissection was undertaken and wick was placed after the cavity was irrigated. Discharge Plan Dx/Rx/DC Orders Clinical Impression: Abscess or cellulitis of groin, Type 2 diabetes mellitus with hyperglycemia, without long-term current use of insulin, Benign hypertension, Obstructive sleep apnea, History of substance abuse, History of hypercholesterolemia, Adult BMI 40.0-44.9 kg/sq m Disposition Disposition: Acute Care Hospital [facility]
[2025-03-02] MEDS: Vancomycin HCl 2,000 MG in 0.9% Normal Saline (500mL Bag) 500 ML 250 MG IV (15:03)
--- NOTE | 2025-03-02 15:15 | PCM.HP.STD ---
HPI - General General Date of Service: 03/02/25 Chief Complaint: Left groin abscess HPI Narrative KAELA HUFF, is a 40 M who presents with left groin abscess. He tried squeezing on his own and took a doxycycline that he had leftover from a previous infection. Afterwards did cause him to feel nauseated and throw up. Stated that he only threw up 1 time. So presented to the emergency room where he underwent an I&D by Dr. Gonzalez at bedside and was noted to have purulence expressed from the wound. He did have an elevated lactic acid of 2.4. Patient otherwise feels well at this time. He did have some chills and diaphoresis but overall feels better at this time. In the emergency room, he received IV fluids, Unasyn and vancomycin. Patient is a type II diabetic but does not take any medications. States that his blood sugars usually run to the 100s to 110s. Occasional get up into the 160s. [ ] [facility] Medical History Benign hypertension Depression Diabetes Acute asthma exacerbation Morbid obesity History of substance abuse Obstructive sleep apnea History of hypercholesterolemia Home Medications ?Medication ?Instructions ?Recorded ?Last Taken ?Type lisinopril 40 mg tablet 40 mg PO DAILY 04/15/13 05/22/16 History buprenorphine 8 mg-naloxone 2 mg 12 ea sublingual DAILY 04/13/15 05/22/16 History sublingual film (Suboxone) bisoprolol 5 1 tab PO DAILY 05/22/16 05/22/16 History mg-hydrochlorothiazide 6.25 mg tablet Allergy/AdvReac Type Severity Reaction Status Date / Time No Known Allergies Allergy Verified 03/02/25 12:59 Family History no significant family his Surgical History Total knee replacement status History of appendectomy Social History household members: family current occupational status: unemployed Smoking Status: Current every day smoker tobacco type: cigarettes ROS ROS Narrative All review of systems were negative except as mentioned above in the history of present illness and the other review of systems. Vital Signs Vital Signs Vital Signs: 03/02/25 12:55 03/02/25 13:03 03/02/25 14:00 Temperature 36.4 C L 36.4 C L 37.1 C Temperature Source Oral Oral Oral Pulse Rate 73 61 51 L Respiratory Rate 26 H 22 H 17 Blood Pressure 135/82 H 139/58 H 147/98 H Blood Pressure Mean 99 85 114 Pulse Ox 98 97 95 Oxygen Delivery Method Room Air Room Air Room Air 03/02/25 14:49 03/02/25 15:00 Temperature 37.1 C Temperature Source Oral Pulse Rate 78 Respiratory Rate 17 Blood Pressure 149/80 H Blood Pressure Mean 103 Pulse Ox 98 Oxygen Delivery Method Room Air Weight Weight: 147.8 kg Body Mass Index (BMI) 44.1 Physical Exam Const alert and no apparent distress Constitutional Narrative: Appears very comfortable. Afebrile. No diaphoresis. HEENT normocephalic and head/scalp atraumatic Resp normal respiratory effort, no retractions, no use of accessory muscles and clear to auscultation bilaterally Cardio regular rate, regular rhythm, S1 normal heart sound and S2 normal heart sound GI normal to inspection, nondistended, normoactive bowel sounds, soft to palpation, non-tender and non-distended Extremity Extremity Narrative: Bilateral varicose veins lower extremities. Skin Skin Narrative: Left inguinal incision with packing. Area overall appears clean and intact. No purulence was expressed on my evaluation post incision and drainage. Psych affect normal Results Lab / Micro Data 03/02/25 13:25 03/02/25 13:25 Labs: Laboratory Results - last 24 hr 03/02/25 13:25: WBC 11.8 H, RBC 5.39, Hgb 15.7, Hct 46.7, MCV 86.6, MCH 29.1, MCHC 33.6, RDW Std Deviation 41.7, RDW Coeff of Jas 13.3, Plt Count 178, MPV 10.9, Immature Gran % (Auto) 1.000 H, Neut % (Auto) 70.0, Lymph % (Auto) 17.8 L, [place] % (Auto) 9.5, Eos % (Auto) 1.4, Baso % (Auto) 0.3, Absolute Neuts (auto) 8.2 H, Absolute Lymphs (auto) 2.09, Nucleated RBC % 0, PT 14.0, INR 1.1, APTT 28.5, Sodium 137, Potassium 3.4, Chloride 98, Carbon Dioxide 29.3, Anion Gap 11, BUN 7, Creatinine 0.76, Estim Creat Clear Calc 195.06, Est GFR (MDRD) Non-Af 117, BUN/Creatinine Ratio 9.9 L, Glucose 207 H, Lactic Acid 2.4 H*, Calcium 9.1, Total Bilirubin 0.46, AST 20, ALT 16, Alkaline Phosphatase 99, Total Protein 8.3, Albumin 4.4, Globulin 3.9, Albumin/Globulin Ratio 1.1 03/02/25 13:45: Urine Color Yellow, Urine Clarity Sl. Cloudy, Urine pH 6.0, Ur Specific [place] 1.025, Urine Protein 100 H, Urine Glucose (UA) 50 H, Urine Ketones 5 H, Urine Occult Blood 10 H, Urine Nitrite Negative, Urine Bilirubin Negative, Urine Urobilinogen Normal, Ur Leukocyte Esterase 25 H, Urine RBC 0 SEEN, Urine WBC 0 SEEN, Ur Squamous Epith Cells 0 SEEN, Urine Bacteria 0 SEEN, Urine Mucus 0 SEEN Assessment & Plan Assessment/Plan (1) Abscess or cellulitis of groin: PLAN: Clinically not septic at this time. I&D at bedside by the emergency room physician Wait on final culture results In the meantime continue with antibiotics with ampicillin/sulbactam and vancomycin Wound care to assist with managing the wound. PLAN: Plan Transient nausea and vomiting: X 1 per the patient. Supportive management at this time. Lactic acidosis: Lactic acid 2.4. Clinically currently the patient is stable but does appear dehydrated based on specific gravity of 1.025 on his urinalysis. Will give IV fluids. Diabetes mellitus type 2: Not on any medications. States that his blood sugars typically are in the 100s to 110s. Patient # scale insulin. Check an A1c. Morbid obesity: Complicates care and recovery. History of opiate abuse: Continue with Suboxone. Reviewed his OARRS that confirms that he is actually receiving that. Avoid narcotics for pain. Patient will have acetaminophen and ketorolac as needed. Hypertension: Hold off on his antihypertensives at this time given the lactic acidosis and dehydration he is currently dealing with. VTE prophylaxis with enoxaparin 40 mg twice daily CODE STATUS: Addressed with the patient. Patient wishes to be full code. Charges/Coding Visit Charges Inpatient E&M: 13153 Init Hosp L2
--- NOTE | 2025-03-02 15:56 | PHA.PHARE_ITS ---
Consult Antibiotic Management Pharmacy has been consulted to manage selected antibiotic: Vancomycin Type of Intervention Type of Consult: New start Suspected Infection Suspected Infection: Skin/Soft tissue Prior Doses of Antibiotics Prior Doses of Antibiotics Received/Current Regimen: received vanc 2000mg IV x1 in E.R. starting at 15:03 today Labs Labs: Sodium 137 mmol/L (133-145) 03/02/25 13:25 Potassium 3.4 mmol/L (3.3-5.1) 03/02/25 13:25 Chloride 98 mmol/L (98-108) 03/02/25 13:25 Carbon Dioxide 29.3 mmol/L (21.0-32.0) 03/02/25 13:25 Anion Gap 11 (5-15) 03/02/25 13:25 BUN 7 mg/dL (4-19) 03/02/25 13:25 Creatinine 0.76 mg/dL (0.70-1.20) 03/02/25 13:25 Est GFR (MDRD) Non-Af 117 (>60) 03/02/25 13:25 BUN/Creatinine Ratio 9.9 RATIO (10-20) L 03/02/25 13:25 Glucose 207 mg/dL (70-99) H 03/02/25 13:25 Dosing Weight Weight used for dosin.8 kg Estimated Creatinine Clearance Estimated Creatinine Clearance: 195 ml/min Goal Trough Goal Trough: 10-15 mcg/mL Pharmacy Plan for Drug Dosing Pharmacy Plan for Drug Dosing: Starting 12 hours after the E.R. dose, continue with vanc 1750mg IV q12h per [facility] dosing protocol. Check a vanc trough before the 4th overall dose. Pharmacy Service will continue to monitor and adjust dosing as required. Follow-Up Labs Follow-Up Labs: Trough: Vancomycin Date/Time Labs Ordered Labs to be done on [date and time ordered]: 03/04/25 02:30
[2025-03-02] MEDS: 0.9% Normal Saline (1000mL) 1,000 ML 150 ML IV (16:04)
[2025-03-02] MEDS: CLARIFY ORDER NOTE (16:05)
[2025-03-02 17:31] LABS: Reflex Lactate? Y
[2025-03-02] MEDS: Nicotine (PBKC) 21 MG Patch TD (18:34)
[2025-03-02] MEDS: 0.9% Normal Saline (250mL Bag) 250 ML IV (19:18)
[2025-03-03] MEDS: Ampicillin/Sulbactam 3 GM in 0.9% Normal Saline (100mL MB+) 100 ML IV ×5 (00:18→23:32)
[2025-03-03 03:00] VITALS: BP 126/77; PULSE 59; RESP 16; TEMP 36.9; O2SAT 96
[2025-03-03] MEDS: Vancomycin HCl 1,750 MG in 0.9% Normal Saline (500mL Bag) 500 ML 250 MG IV ×2 (03:07→15:35)
[2025-03-03 06:26] LABS: Hematocrit 43.6 % (40-54); Hemoglobin 14.7 g/dL (13.0-16.5); Immature Granulocytes Count 0.090 X10^3/uL (0.0-0.0); Mean Corp Hgb Conc 33.7 g/dL (32-36); Mean Corpuscular Volume 86.7 fL (80-94); Mean Platelet Vol. 11.1 fl (6.2-12.0); NRBC Flagged by Analyzer 0 % (0-5); Platelet Count 172 K/mm3 (150-450); RBC Distribution Width CV 13.3 % (11.6-14.6); RBC Distribution Width SD 42.3 fl (35.1-43.9); Red Blood Count 5.03 M/mm3 (4.6-6.2); White Blood Count 10.9 K/mm3 (4.4-11.0)
[2025-03-03 06:51] LABS: Anion Gap 8 (5-15); BUN 7 mg/dL (4-19); BUN/Creat Ratio 10.2 RATIO (10-20); Calcium,Total 9.0 mg/dL (7.6-11.0); Carbon Dioxide 28.7 mmol/L (21.0-32.0); Chloride 103 mmol/L (98-108); Estimated Creatinine Clearance 208.80 ml/min (50-250); Glucose 137 mg/dL (70-99); Potassium 4.2 mmol/L (3.3-5.1)
--- NOTE | 2025-03-03 07:42 | PN.HOSP_ITS ---
Reason for Visit Chief Complaint: Left groin abscess Objective Data Objective Data Vital Signs: Vital Signs Temp Pulse Resp BP Pulse Ox O2 Del Method 98.5 F 59 L 16 126/77 H 96 Room Air 03/03/25 03:00 03/03/25 03:00 03/03/25 03:00 03/03/25 03:00 03/03/25 03:00 03/03/25 03:00 Oxygen Delivery Method Room Air Weight: 325 lb 13.491 oz Body Mass Index (BMI) 44.1 Intake & Output: Intake and Output for Last 24 Hours 03/01/25 03/02/25 03/03/25 23:59 23:59 23:59 Intake Total 2420 / 2420 635 / 635 Balance 2420 / 2420 635 / 635 Lab / Micro Data 03/03/25 05:43 03/03/25 05:43 Labs: Laboratory Results - last 24 hr 03/02/25 13:25: WBC 11.8 H, RBC 5.39, Hgb 15.7, Hct 46.7, MCV 86.6, MCH 29.1, MCHC 33.6, RDW Std Deviation 41.7, RDW Coeff of Jas 13.3, Plt Count 178, MPV 10.9, Immature Gran % (Auto) 1.000 H, Neut % (Auto) 70.0, Lymph % (Auto) 17.8 L, [place] % (Auto) 9.5, Eos % (Auto) 1.4, Baso % (Auto) 0.3, Absolute Neuts (auto) 8.2 H, Absolute Lymphs (auto) 2.09, Nucleated RBC % 0, PT 14.0, INR 1.1, APTT 28.5, Sodium 137, Potassium 3.4, Chloride 98, Carbon Dioxide 29.3, Anion Gap 11, BUN 7, Creatinine 0.76, Estim Creat Clear Calc 195.06, Est GFR (MDRD) Non-Af 117, BUN/Creatinine Ratio 9.9 L, Glucose 207 H, Lactic Acid 2.4 H*, Calcium 9.1, Total Bilirubin 0.46, AST 20, ALT 16, Alkaline Phosphatase 99, Total Protein 8.3, Albumin 4.4, Globulin 3.9, Albumin/Globulin Ratio 1.1 03/02/25 13:45: Urine Color Yellow, Urine Clarity Sl. Cloudy, Urine pH 6.0, Ur Specific [place] 1.025, Urine Protein 100 H, Urine Glucose (UA) 50 H, Urine Ketones 5 H, Urine Occult Blood 10 H, Urine Nitrite Negative, Urine Bilirubin Negative, Urine Urobilinogen Normal, Ur Leukocyte Esterase 25 H, Urine RBC 0 SEEN, Urine WBC 0 SEEN, Ur Squamous Epith Cells 0 SEEN, Urine Bacteria 0 SEEN, Urine Mucus 0 SEEN 03/02/25 16:10: POC Glucose 175 H 03/02/25 19:11: Lactic Acid 1.4 03/02/25 22:31: POC Glucose 155 H 03/03/25 05:43: WBC 10.9, RBC 5.03, Hgb 14.7, Hct 43.6, MCV 86.7, MCH 29.2, MCHC 33.7, RDW Std Deviation 42.3, RDW Coeff of Jas 13.3, Plt Count 172, MPV 11.1, Immature Gran % (Auto) 0.800, Neut % (Auto) 61.0, Lymph % (Auto) 27.5, [place] % (Auto) 9.0, Eos % (Auto) 1.3, Baso % (Auto) 0.4, Absolute Neuts (auto) 6.7, Absolute Lymphs (auto) 3.00, Nucleated RBC % 0, Sodium 139, Potassium 4.2, Chloride 103, Carbon Dioxide 28.7, Anion Gap 8, BUN 7, Creatinine 0.71, Estim Creat Clear Calc 208.80, Est GFR (MDRD) Non-Af 120, BUN/Creatinine Ratio 10.2, G lucose 137 H, Hemoglobin A1c 7.9 H, Calcium 9.0 03/03/25 06:03: POC Glucose 140 H Physical Exam Narrative Seen and examined. Patient is started he did not feel any fever but had sweating. He took 2 tablets of doxycycline after half an hour he threw up. Admitted with left groin abscess Physical exam General: Alert, Oriented x3, Cooperative. Obesity grade 3 44.2 kg/m? HEENT: Atraumatic, PERRLA, EOMI, Normocephalic. Oral: Edentulous no Gingival or Mucosal Lesions/ Ulcerations Neck: Supple, No JVD, Negative Carotid Bruits Chest wall/Lungs: Air entry diminished in bilateral lung bases. No crepitation/rhonchi Cardiovascular: Regular rate and rhythm, Normal S1,S2, No M/G/R Abdomen: Bowel Sounds Present, Soft, Non Tender, Non-Distended : No dysuria. No renal angle tenderness. No suprapubic tenderness. Extremities: No edema, Capillary Refill Less than 3 Seconds Skin: Left groin incision and drainage with small wig. stained with purulent and dark blood. No acute tenderness but induration and mild redness present Musculoskeletal: No Tenderness to Palpation of Joints or Extremities Neurological: Cranial nerves II-XII grossly intact, DTR 2+/4. No acute focal neurological deficit. Psych/Mental Status: Normal Affect, Appropriate. 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 Patient complained of left groin pain and infection/swelling and tried to squeeze it. I&D was done by Dr. Gonzalez at bedside noted to purulence expressed from the wound. 1. Abscess with localized cellulitis of left inguinal region/groin area: [facility] Clinically not septic and does not meet criteria for sepsis. Patient had I&D at bedside by ED physician. On exam mild surrounding induration, erythema and tenderness but no appreciable collection. On IV antibiotic vancomycin and ampicillin/sulbactam. Plastic surgeon consulted for further opinion. No history of hidradenitis suppurativa or axillary or groin abscess. 2. Transient nausea and vomiting: X 1 per the patient. Resolved. Supportive management at this time. 3. Lactic acidosis: Lactic acid 2.4. Clinically currently the patient is stable but does appear dehydrated based on specific gravity of 1.025 on his urinalysis. Had IV fluid 4. Diabetes mellitus type 2: Not on any medications. States that his blood sugars typically are in the 100s to 110s. Glucose 137 A1c 7.9%. Accu-Chek shows glucose between 140?175 mg/dL. Accu-Chek before meals and at bedtime with Humalog sliding scale coverage and hypoglycemia protocol. 5. Morbid obesity BMI 44.2 PG per square meter: Complicates care and recovery. 6. History of opiate abuse: Continue with Suboxone. Reviewed his OARRS that confirms that he is actually receiving that. Avoid narcotics for pain. Patient will have acetaminophen and ketorolac as needed. 7. Hypertension: Hold off on his antihypertensives at this time given the lactic acidosis and dehydration he is currently dealing with. VTE prophylaxis, high risk due to morbid obesity: enoxaparin 40 mg twice daily CODE STATUS: The patient is full code Laboratory Results 03/02/25 13:25: WBC 11.8 H, RBC 5.39, Hgb 15.7, Hct 46.7, MCV 86.6, MCH 29.1, MCHC 33.6, RDW Std Deviation 41.7, RDW Coeff of Jas 13.3, Plt Count 178, MPV 10.9, Immature Gran % (Auto) 1.000 H, Neut % (Auto) 70.0, Lymph % (Auto) 17.8 L, [place] % (Auto) 9.5, Eos % (Auto) 1.4, Baso % (Auto) 0.3, Absolute Neuts (auto) 8.2 H, Absolute Lymphs (auto) 2.09, Nucleated RBC % 0, PT 14.0, INR 1.1, APTT 28.5, Sodium 137, Potassium 3.4, Chloride 98, Carbon Dioxide 29.3, Anion Gap 11, BUN 7, Creatinine 0.76, Estim Creat Clear Calc 195.06, Est GFR (MDRD) Non-Af 117, BUN/Creatinine Ratio 9.9 L, Glucose 207 H, Lactic Acid 2.4 H*, Calcium 9.1, Total Bilirubin 0.46, AST 20, ALT 16, Alkaline Phosphatase 99, Total Protein 8.3, Albumin 4.4, Globulin 3.9, Albumin/Globulin Ratio 1.1 03/02/25 13:45: Urine Color Yellow, Urine Clarity Sl. Cloudy, Urine pH 6.0, Ur Specific [place] 1.025, Urine Protein 100 H, Urine Glucose (UA) 50 H, Urine Ketones 5 H, Urine Occult Blood 10 H, Urine Nitrite Negative, Urine Bilirubin Negative, Urine Urobilinogen Normal, Ur Leukocyte Esterase 25 H, Urine RBC 0 SEEN, Urine WBC 0 SEEN, Ur Squamous Epith Cells 0 SEEN, Urine Bacteria 0 SEEN, Urine Mucus 0 SEEN 03/02/25 16:10: POC Glucose 175 H 03/02/25 19:11: Lactic Acid 1.4 03/02/25 22:31: POC Glucose 155 H 03/03/25 05:43: WBC 10.9, RBC 5.03, Hgb 14.7, Hct 43.6, MCV 86.7, MCH 29.2, MCHC 33.7, RDW Std Deviation 42.3, RDW Coeff of Jas 13.3, Plt Count 172, MPV 11.1, Immature Gran % (Auto) 0.800, Neut % (Auto) 61.0, Lymph % (Auto) 27.5, [place] % (Auto) 9.0, Eos % (Auto) 1.3, Baso % (Auto) 0.4, Absolute Neuts (auto) 6.7, Absolute Lymphs (auto) 3.00, Nucleated RBC % 0, Sodium 139, Potassium 4.2, Chloride 103, Carbon Dioxide 28.7, Anion Gap 8, BUN 7, Creatinine 0.71, Estim Creat Clear Calc 208.80, Est GFR (MDRD) Non-Af 120, BUN/Creatinine Ratio 10.2, G lucose 137 H, Hemoglobin A1c 7.9 H, Calcium 9.0 03/03/25 06:03: POC Glucose 140 H Charges/Coding Visit Charges Inpatient E&M: 48895 Subs Hosp L2
[2025-03-03 09:00] VITALS: BP 153/83; PULSE 62; RESP 16; TEMP 36.7; O2SAT 97
--- NOTE | 2025-03-03 09:29 | CASEMGMT ---
Addendum entered by Fredy Vazquez 03/03/25 11:01: Pt would like to get any new Rx's from [facility]. Addendum entered by Fredy Vazquez 03/03/25 11:01: 10:05 AM: ROBERT CARRILLO to room. Introduced self and role. Pt states he lives w/his grandmother & is independent. Discussed wound care to groin. Pt states he has watched how it is done and states he would be willing to do on his own & feels comfortable doing so. He states, however, if he would need assistance, his sig other, Alessia, would be able to able to assist him. Discussed DME. Pt states he has a functioning glucometer w/supplies. He does not check his BS's routinely, just when he feels off. He is not currently on any medications for DM. He was on Trulicity for about 1 1/2 yrs, but states d/t stomach problems, it was stopped for awhile. He had an appt scheduled w/Dr Fritz to get a new script for it, but ended up cancelling the appt. He went on-line to re-schedule but it would not allow him to schedule an appt w/Dr Fritz until he scheduled an appt w/bread slicer machine, so he did not schedule it. He states that was about 4 months ago. He has not called into the office to schedule an appt w/Dr Fritz, but plans to do so. He denies needing assistance w/scheduling this, stating he will take care of it. He denies having any further discharge needs or concerns. He states he is hopeful to discharge home today. Original Note: ROBERT CARRILLO NOTE:? Dx:?Abscess Strata:?2 6 click:?24 No therapy ordered.? No CM consult ordered.? Pt has a PCP listed in [facility]. Medical record reviewed and patient evaluated for identification of discharge planning needs. Patient does not currently demonstrate a need for discharge planning by ROBERT CARRILLO. CM will continue to be available for any discharge needs that may arise, and intervene as indicated. Armin JUAREZ RN, CM
[2025-03-03 10:00] VITALS: RESP 16
[2025-03-03] MEDS: FLU VACCINE 2025-26(6MOS UP) 45 MCG/0.5 ML SYRINGE IM (10:10)
[2025-03-03] MEDS: Nicotine (PBKC) 21 MG Patch TD (10:14)
[2025-03-03] MEDS: 0.9% Saline Lock 10 ML Syringe IV ×2 (12:38→23:32)
--- NOTE | 2025-03-03 15:16 | CHAPLAIN ---
Type of Pastoral Visit _x__ Initial Visit ___ Follow-up Visit ___ On-call Visit ___ General Patient Visit ___ Spiritual Assessment ___ Family Conference ___ Bereavement ___ Rapid Response ___ Code Blue ___ Other (describe below) Pastoral Care Referral From ___ Patient _x__ Family ___ Nurse ___ Physician ___ Nutrition Aides Teacher ___ Online Marketing Coordinator ___ Other (describe below) Sacrament/Intervention _x__ Active listening ___ Anointing ___ Rastafarian ___ Bereavement ___ Communion ___ Kiki exploration ___ ___ Life review _x__ Prayer ___ Reconciliation ___ Sacrament of Sick _x__ Supportive presence ___ Wedding ___ Other (describe below) Pastoral Comments SO requested a visit to this patient; patient is feeling better and hopes to go home yet today; pt is pleasant and welcomes a prayer with casual conversation
[2025-03-03 15:37] VITALS: BP 164/89; PULSE 68; RESP 16; TEMP 36.8; O2SAT 97
[2025-03-03 15:45] VITALS: RESP 18
--- NOTE | 2025-03-03 16:01 | NURSING ---
Nurse into see pt and administer Vanco. Pt is getting dressed. He is saying he is going home and will not stay another night. He is notified of Infectious disease doctor consulted. He asked why and questions this. He is notified that cultures are still pending and need for correct anti biotic for home dc for effective management is imperative.
--- NOTE | 2025-03-03 16:03 | CON.PCM.SX_ITS ---
Assessment & Plan Assessment/Plan (1) Abscess or cellulitis of groin: PLAN: No surgical interventions indicated at this time. No signs of jay's gangrene Recommend staying overnight to receive further IV antibiotics. Final cultures pending. We discussed smoking hinders healing. We will continue to follow and reassess tomorrow morning. HPI Consult Data Date of Consult: 03/03/25 HPI Narrative HPI Narrative: Patient is a 40-year-old male who Dr. Hercules requested consultation for his left groin abscess. Past medical history significant for type 2 diabetes, A1c of 7.9%, morbid obesity, current smoker, history of opiate use has been clean for 10+ years on Suboxone, hypertension who presented to the ED with 5 to 6 days of left groin abscess. He was taking leftover doxycycline from oral surgery and tried to squeeze it himself. He presented to the ED and I&D was done at bedside with purulence expressed from the wound and was subsequently packed. Preliminary culture showing gram-positive and gram-negative cultures and he continues on broad-spectrum IV antibiotics. ID consult is pending. Patient was seen at 316 bedside. He is asking when he can be discharged as he wants to go smoke. He denies ever having a fever, chills. He denies scrotal, penile or anal pain, leg pain, numbness, tingling, weakness. [facility] Medical History Benign hypertension Depression Diabetes Acute asthma exacerbation Morbid obesity History of substance abuse Obstructive sleep apnea History of hypercholesterolemia Home Medications ?Medication ?Instructions ?Recorded ?Last Taken ?Type lisinopril 40 mg tablet 40 mg PO DAILY HTN 04/15/13 03/01/25 12:00 History buprenorphine 8 mg-naloxone 2 mg 12 ea sublingual LAVELL Y Opiate use 04/13/15 03/01/25 12:00 History sublingual film (Suboxone) bisoprolol 5 1 tab PO DAILY HTN 05/22/16 03/01/25 12:00 History mg-hydrochlorothiazide 6.25 mg tablet Allergy/AdvReac Type Severity Reaction Status Date / Time No Known Allergies Allergy Verified 03/02/25 12:59 Family History no significant family his Surgical History Total knee replacement status History of appendectomy Social History household members: family current occupational status: unemployed Smoking Status: Current every day smoker tobacco type: cigarettes ROS ROS Narrative General: Denies fever, chills HEENT: Denies headaches, vision changes, sore throat Cardio: Denies chest pain, leg edema Pulmonary: Denies shortness of pain, cough, wheezing GI: Denies nausea, vomiting, diarrhea Physical Exam Narrative Afebrile/VSS. Lying in bed watching TV no acute distress speech is clear, intact and appropriate. He is partially dressed and civilian clothe. Left groin abscess packing in place, indurated, scant purulent drainage noted. Surrounding edema. No skin changes or abnormalities noted in surrounding structures. Moves all extremity spontaneously and smoothly. Lab / Micro Data 03/03/25 05:43 03/03/25 05:43 Labs: Laboratory Results - last 24 hr 03/02/25 16:10: POC Glucose 175 H 03/02/25 19:11: Lactic Acid 1.4 03/02/25 22:31: POC Glucose 155 H 03/03/25 05:43: WBC 10.9, RBC 5.03, Hgb 14.7, Hct 43.6, MCV 86.7, MCH 29.2, MCHC 33.7, RDW Std Deviation 42.3, RDW Coeff of Jas 13.3, Plt Count 172, MPV 11.1, Immature Gran % (Auto) 0.800, Neut % (Auto) 61.0, Lymph % (Auto) 27.5, [place] % (Auto) 9.0, Eos % (Auto) 1.3, Baso % (Auto) 0.4, Absolute Neuts (auto) 6.7, Absolute Lymphs (auto) 3.00, Nucleated RBC % 0, Sodium 139, Potassium 4.2, Chloride 103, Carbon Dioxide 28.7, Anion Gap 8, BUN 7, Creatinine 0.71, Estim Creat Clear Calc 208.80, Est GFR (MDRD) Non-Af 120, BUN/Creatinine Ratio 10.2, G lucose 137 H, Hemoglobin A1c 7.9 H, Calcium 9.0 03/03/25 06:03: POC Glucose 140 H 03/03/25 12:10: POC Glucose 165 H Micro: Microbiology 03/02/25 Unknown Wound Abcess - Other Gram Stain - Final 03/02/25 13:45 Urine, Clean Catch Urine Culture - Preliminary Culture exhibits no growth. Charges/Coding Visit Charges Office Visits / Consults: 43449 OV L2 New 15min
[2025-03-03 21:12] LABS: Staph aureus DNA By PCR NEGATIVE (Negative)
[2025-03-03 22:07] VITALS: BP 136/84; PULSE 55; RESP 18; TEMP 36.3; O2SAT 97
[2025-03-04] MEDS: Vancomycin Trough/Random Due 1 LAB MC (02:30)
[2025-03-04 03:22] LABS: Vancomycin, Trough Level 6.6 ug/mL (5.0-15.0)
--- NOTE | 2025-03-04 03:55 | PCM.RX.CS ---
Consult Antibiotic Management Pharmacy has been consulted to manage selected antibiotic: Vancomycin Type of Intervention Type of Consult: Follow-up Suspected Infection Suspected Infection: Skin/Soft tissue Labs Labs: Sodium 139 mmol/L (133-145) 03/03/25 05:43 Potassium 4.2 mmol/L (3.3-5.1) 03/03/25 05:43 Chloride 103 mmol/L (98-108) 03/03/25 05:43 Carbon Dioxide 28.7 mmol/L (21.0-32.0) 03/03/25 05:43 Anion Gap 8 (5-15) 03/03/25 05:43 BUN 7 mg/dL (4-19) 03/03/25 05:43 Creatinine 0.71 mg/dL (0.70-1.20) 03/03/25 05:43 Est GFR (MDRD) Non-Af 120 (>60) 03/03/25 05:43 BUN/Creatinine Ratio 10.2 RATIO (10-20) 03/03/25 05:43 Glucose 137 mg/dL (70-99) H 03/03/25 05:43 Vancomycin Trough 6.6 ug/mL (5.0-15.0) 03/04/25 02:24 Microbiology Microbiology: Microbiology 03/02/25 Unknown Wound Abcess - Other Gram Stain - Final 03/02/25 13:45 Urine, Clean Catch Urine Culture - Preliminary Culture exhibits no growth. Dosing Weight Weight used for dosin.8 kg Estimated Creatinine Clearance Estimated Creatinine Clearance: 209 Goal Trough Goal Trough: 10-15 mcg/mL Pharmacy Plan for Drug Dosing Pharmacy Plan for Drug Dosing: Vancomycin trough level of 6.6, drawn 11hrs post-dose, was below the target range of 10-15. Per dosing calculator, a new dose of 1750mg q8h should give a new est trough of 12.6. Will initiate now and draw another trough prior to fourth dose of the new regimen. Pharmacy Service will continue to monitor and adjust dosing as required. Follow-Up Labs Follow-Up Labs: Trough: Vancomycin Date/Time Labs Ordered Labs to be done on [date and time ordered]: 03/05/25 @6538
[2025-03-04 04:00] VITALS: BP 126/79; PULSE 55; RESP 16; TEMP 36.6; O2SAT 95
[2025-03-04] MEDS: Vancomycin HCl 1,750 MG in 0.9% Normal Saline (500mL Bag) 500 ML 250 MG IV ×2 (04:01→13:09)
[2025-03-04] MEDS: Ampicillin/Sulbactam 3 GM in 0.9% Normal Saline (100mL MB+) 100 ML IV ×2 (06:29→12:11)
--- NOTE | 2025-03-04 07:51 | WOUNDNOTE ---
wound photo: left groin
[2025-03-04 09:00] VITALS: BP 154/92; PULSE 67; RESP 16; TEMP 36.3; O2SAT 95
--- NOTE | 2025-03-04 09:15 | CASEMGMT ---
RN CM spoke with wound nurse who states that pt current bottle of packing will be enough for pt. Nurse to send pt with out dressings. No rx needed for wound care supplies.
[2025-03-04] MEDS: hydroCHLOROthiazide 6.25mg TAB 6.25 MG PO (09:38)
[2025-03-04] MEDS: Nicotine (PBKC) 21 MG Patch TD (09:38)
--- NOTE | 2025-03-04 11:35 | PCM.PN.SRG ---
Subjective Subjective Patient seen this morning at bedside. He voices frustration that he is still in the hospital. Hospitalist came and spoke with him yesterday evening regarding recommendations to remain inpatient. Objective Data Objective Data Vital Signs: Vital Signs Temp Pulse Resp BP Pulse Ox O2 Del Method 97.3 F L 67 16 154/92 H 95 Room Air 03/04/25 09:00 03/04/25 09:00 03/04/25 09:00 03/04/25 09:00 03/04/25 09:00 03/04/25 10:00 Oxygen Delivery Method Room Air Weight: 325 lb 13.491 oz Body Mass Index (BMI) 44.1 Intake & Output: Intake and Output for Last 24 Hours 03/02/25 03/03/25 03/04/25 23:59 23:59 23:59 Intake Total 2420 / 2420 3470 / 3670 935 / 935 Balance 2420 / 2420 3470 / 3670 935 / 935 Lab / Micro Data Attestation: I reviewed the patient's lab results. 03/03/25 05:43 03/03/25 05:43 Labs: Laboratory Results - last 24 hr 03/03/25 12:10: POC Glucose 165 H 03/03/25 17:17: POC Glucose 160 H 03/03/25 19:00: S.aureus Protein A PCR NEGATIVE, MRSA (PCR) Negative 03/03/25 22:10: POC Glucose 167 H 03/04/25 02:24: Vancomycin Trough 6.6 03/04/25 06:32: POC Glucose 117 H Micro: Microbiology 03/02/25 Unknown Wound Abcess - Other Gram Stain - Final 03/02/25 Unknown Wound Abcess - Other Wound Culture - Preliminary No growth-Final to follow 03/02/25 13:45 Urine, Clean Catch Urine Culture - Final Culture exhibits no growth. Physical Exam Narrative Afebrile/VSS. Ambulating in room without issues. Left groin abscess with iodoform tail present, induration surrounding abscess with estimated 2 cm x 2 cm area of firmness without expressible drainage. No tracking noted. No inguinal lymphadenopathy. No scrotal erythema or edema Assessment & Plan Assessment/Plan (1) Abscess or cellulitis of groin: PLAN: PLAN: No surgical interventions indicated at this time. No signs of jay's gangrene Agree with continuing broad spectrum IV antibiotics. Prelim showed 2+ GNR, GPC. Final cultures pending. Our recommendations would be for him to remain in patient to continue receiving IV antibiotics given his comorbidities and location of his abscess with ongoing induration We will continue to follow. Charges/Coding Visit Charges Inpatient E&M: 49314 Subs Hosp L2
--- NOTE | 2025-03-04 12:45 | PCM.CONS.GEN ---
Assessment & Plan Assessment/Plan (1) Type 2 diabetes mellitus with hyperglycemia, without long-term current use of insulin: (2) Abscess or cellulitis of groin: PLAN: I&D done, plastic surgery following, wound cx pending. On vanc/unasyn. Ok for home today or tomorrow with one week po bactrim DS bid and augmentin 875mg bid. Will contact primary team. Will follow, thank you HPI Consult Data Date of Consult: 03/04/25 HPI Narrative Reason for Consultation: abscess HPI Narrative: KAELA HUFF, is a 40 M with h/o DM, obesity, presented 03/02 with 2-3 days progressive L groin pain, redness, swelling. Did shave at that area recently. No drainage at home. Developed some chills and nausea. Came to ED, I&D done, on vanc/unasyn, feeling better, wants to go home. Pain is a 1/10 at rest now. Full ROS performed and neg except as noted above. [facility] Medical History Benign hypertension Depression Diabetes Acute asthma exacerbation Morbid obesity History of substance abuse Obstructive sleep apnea History of hypercholesterolemia Home Medications ?Medication ?Instructions ?Recorded ?Last Taken ?Type lisinopril 40 mg tablet 40 mg PO DAILY HTN 04/15/13 03/01/25 12:00 History buprenorphine 8 mg-naloxone 2 mg 12 ea sublingual DAILY Opiate use 04/13/15 03/01/25 12:00 History sublingual film (Suboxone) bisoprolol 5 1 tab PO DAILY HTN 05/22/16 03/01/25 12:00 History mg-hydrochlorothiazide 6.25 mg tablet Allergy/AdvReac Type Severity Reaction Status Date / Time No Known Allergies Allergy Verified 03/02/25 12:59 Family History no significant family his Surgical History Total knee replacement status History of appendectomy Social History household members: family current occupational status: unemployed Smoking Status: Current every day smoker tobacco type: cigarettes Physical Exam Const alert, oriented x3 and no apparent distress General Appearance: cooperative HEENT normocephalic and head/scalp atraumatic Eyes PERRL and EOMs intact bilaterally Neck supple and No nodes Resp normal air movement and clear to auscultation bilaterally Cardio regular rate and regular rhythm GI soft to palpation, non-tender and non-distended Extremity General Extremity: Negative for edema Skin Skin Narrative: L groin wound with minimal erythema surrounding Neuro CN's II-XII intact bilaterally Lab / Micro Data Attestation: I reviewed the patient's lab results. 03/03/25 05:43 03/03/25 05:43 Labs: Laboratory Results - last 24 hr 03/03/25 17:17: POC Glucose 160 H 03/03/25 19:00: S.aureus Protein A PCR NEGATIVE, MRSA (PCR) Negative 03/03/25 22:10: POC Glucose 167 H 03/04/25 02:24: Vancomycin Trough 6.6 03/04/25 06:32: POC Glucose 117 H 03/04/25 12:10: POC Glucose 151 H Micro: Microbiology 03/02/25 14:00 Blood Culture (Wb) - Right Wrist Blood Culture - Preliminary No growth in 48 hours. 03/02/25 13:25 Blood Culture (Wb) - Anticubital Left Blood Culture - Preliminary No growth in 48 hours. 03/02/25 Unknown Wound Abcess - Other Gram Stain - Final 03/02/25 Unknown Wound Abcess - Other Wound Culture - Preliminary No growth-Final to follow 03/02/25 13:45 Urine, Clean Catch Urine Culture - Final Culture exhibits no growth.
--- NOTE | 2025-03-04 15:28 | DCINST_ITS ---
Discharge Instructions DC O2, CPAP, BIPAP needs Home O2 Discharge instructions: No Dressing / Incision Discharge Activity: Return to Normal Activity Weight Bearing Status: Weight bearing as tolerated Dressing / Incision Call your doctor if you observe: Fever of 101 or Higher, Coldness, Increased Pain, Numbness or Tingling, Change in Color, Inability to urinate, Inability to have a bowel movement, Shortness of breath, Dizziness, Fainting spells, Swelling in the ankles, Chest pain, Prolonged hiccupping, Increased palpitations (irregular heartbeat) and Calf discomfort Follow Up Care When: IN 2 WEEKS Test Results: Test results from this visit will be discussed in further detail at your follow- up appointment, if applicable. Discharge Plan Admission Admit Date/Time: 03/02/25 15:02 Primary Reason for Your Visit: Left groin abscess Attending Provider: Favio Hercules Primary Care Provider: Chris Fritz Consulting Providers: Naresh Bella; Tony Pop; Tony Amaya Discharge Orders/Prescriptions Prescriptions: New sulfamethoxazole-trimethoprim [Bactrim DS] 800-160 mg tablet 1 tab PO BID Qty: 14 0RF amoxicillin-pot clavulanate 875-125 mg tablet 1 tab PO BID 7 Days Qty: 14 0RF Continued buprenorphine-naloxone [Suboxone] 1 EACH film 12 ea sublingual DAILY bisoprolol-hydrochlorothiazide 1 TAB tablet 1 tab PO DAILY Held lisinopril 40 MG tablet 40 mg PO DAILY Hold Instructions: Hold lisinopril while taking Bactrim DS because of drug- drug interaction, risk for hyperkalemia. Referrals / Follow Up: Chris Fritz MD [Primary Care Provider, Family Practice] Tony Pop MD [Med Staff - Active Staff, Plastic Surgery] - Within 1 Week Referral Note: Follow-up for left groin abscess s/p I&D Disposition Disposition (needs filled in before D/C Order can be placed): Home, Self Care
--- NOTE | 2025-03-04 15:32 | PCM.DC.SUM ---
Providers Date of Admission: 03/02/25 Date of Discharge: 03/04/25 Primary Care Physician: Dr. Chris Fritz MD Consultations 03/02/25 15:37 Consult: Onc/Wound/clinical pharmacy coordinator Routine Comment: 03/03/25 09:35 Consult: Plastic Surgery Routine Consulting Provider: Tony Pop Reason for Consult: left groin abscess s/p I&d, Hidra supp? EMERGENT Consult: No MD Notified: Yes Date Notified: 03/03/25 Time Notified: 09:35 Method of Notification: Text 03/03/25 15:23 Consult: Infectious Disease Routine Consulting Provider: Tony Amaya Reason for Consult: SEVERE Left inguinal/groin infection EMERGENT Consult: No MD Notified: Yes Date Notified: 03/03/25 Time Notified: 15:23 Method of Notification: Text Reason For Visit: ABSCESS Diagnosis Discharge Diagnosis (1) Type 2 diabetes mellitus with hyperglycemia, without long-term current use of insulin: Status: Acute Code(s): E11.65 - Type 2 diabetes mellitus with hyperglycemia (2) Abscess or cellulitis of groin: Status: Acute Plan 40-year-old gentleman was admitted with vomiting 25-minute PROJ MGR in the ED after taking a leftover doxycycline from oral surgery. Patient complained of left groin pain and infection/swelling and tried to squeeze it. I&D was done by Dr. Gonzalez at bedside noted to purulence expressed from the wound. 1. Abscess with localized cellulitis of left inguinal region/groin area most likely due to MSSA and GNR: Patient is being [facility] floor. Clinically not septic and does not meet criteria for sepsis. Patient had I&D at bedside by ED physician. On exam mild surrounding induration, erythema and tenderness but no appreciable collection. On IV antibiotic vancomycin and ampicillin/sulbactam. Plastic surgeon consulted for further opinion. No history of hidradenitis suppurativa or axillary or groin abscess. 03/04: Patient was seen and examined by ID. Recommended Bactrim DS, 1 tablet twice daily and Augmentin 875 mg twice daily for 1 week. Patient had vancomycin medicine while here. Gram stain shows 2+ GPC's and 2+ GNR. Blood culture x 2 negative for 48 hours. MRSA PCR negative. Leukocytosis resolved 2. Transient nausea and vomiting: X 1 per the patient. Resolved. Supportive management at this time. 3. Lactic acidosis: Lactic acid 2.4. Clinically currently the patient is stable but does appear dehydrated based on specific gravity of 1.025 on his urinalysis. Had IV fluid 03/04 repeat lactic acid normal. 4. Diabetes mellitus type 2: Not on any medications. States that his blood sugars typically are in the 100s to 110s. Glucose 137 A1c 7.9%. Accu-Chek shows glucose between 140?175 mg/dL. Accu-Chek before meals and at bedtime with Humalog sliding scale coverage and hypoglycemia protocol. 03/04: Advised to follow with PCP. Glucose 137. Metformin prescribed 5. Morbid obesity BMI 44.2 PG per square meter: Complicates care and recovery. 6. History of opiate abuse: Continue with Suboxone. Reviewed his OARRS that confirms that he is actually receiving that. Avoid narcotics for pain. Patient will have acetaminophen and ketorolac as needed. 7. Hypertension: Hold off on his antihypertensives at this time given the lactic acidosis and dehydration he is currently dealing with. VTE prophylaxis, high risk due to morbid obesity: enoxaparin 40 mg twice daily CODE STATUS: The patient is full code Discharge medication reconciliation done. Discharge follow-up instructions completed. Discharge process discussed with the patient and all questions were answered to patient's satisfaction. Follow with PCP in 1 to 2 weeks. Advised follow-up in plastic surgery/wound clinic in 1 week Total time spent, exact 35 minutes on discharge meds reconciliation, examination, coordination of care with nurses and ancillary staff, review of imaging and blood test and discussion with the patient on follow-up instructions. Laboratory Results 03/02/25 13:25: WBC 11.8 H, RBC 5.39, Hgb 15.7, Hct 46.7, MCV 86.6, MCH 29.1, MCHC 33.6, RDW Std Deviation 41.7, RDW Coeff of Jas 13.3, Plt Count 178, MPV 10.9, Immature Gran % (Auto) 1.000 H, Neut % (Auto) 70.0, Lymph % (Auto) 17.8 L, [place] % (Auto) 9.5, Eos % (Auto) 1.4, Baso % (Auto) 0.3, Absolute Neuts (auto) 8.2 H, Absolute Lymphs (auto) 2.09, Nucleated RBC % 0, PT 14.0, INR 1.1, APTT 28.5, Sodium 137, Potassium 3.4, Chloride 98, Carbon Dioxide 29.3, Anion Gap 11, BUN 7, Creatinine 0.76, Estim Creat Clear Calc 195.06, Est GFR (MDRD) Non-Af 117, BUN/Creatinine Ratio 9.9 L, Glucose 207 H, Lactic Acid 2.4 H*, Calcium 9.1, Total Bilirubin 0.46, AST 20, ALT 16, Alkaline Phosphatase 99, Total Protein 8.3, Albumin 4.4, Globulin 3.9, Albumin/Globulin Ratio 1.1 03/02/25 13:45: Urine Color Yellow, Urine Clarity Sl. Cloudy, Urine pH 6.0, Ur Specific [place] 1.025, Urine Protein 100 H, Urine Glucose (UA) 50 H, Urine Ketones 5 H, Urine Occult Blood 10 H, Urine Nitrite Negative, Urine Bilirubin Negative, Urine Urobilinogen Normal, Ur Leukocyte Esterase 25 H, Urine RBC 0 SEEN, Urine WBC 0 SEEN, Ur Squamous Epith Cells 0 SEEN, Urine Bacteria 0 SEEN, Urine Mucus 0 SEEN 03/02/25 16:10: POC Glucose 175 H 03/02/25 19:11: Lactic Acid 1.4 03/02/25 22:31: POC Glucose 155 H 03/03/25 05:43: WBC 10.9, RBC 5.03, Hgb 14.7, Hct 43.6, MCV 86.7, MCH 29.2, MCHC 33.7, RDW Std Deviation 42.3, RDW Coeff of Jas 13.3, Plt Count 172, MPV 11.1, Immature Gran % (Auto) 0.800, Neut % (Auto) 61.0, Lymph % (Auto) 27.5, [place] % (Auto) 9.0, Eos % (Auto) 1.3, Baso % (Auto) 0.4, Absolute Neuts (auto) 6.7, Absolute Lymphs (auto) 3.00, Nucleated RBC % 0, Sodium 139, Potassium 4.2, Chloride 103, Carbon Dioxide 28.7, Anion Gap 8, BUN 7, Creatinine 0.71, Estim Creat Clear Calc 208.80, Est GFR (MDRD) Non-Af 120, BUN/Creatinine Ratio 10.2, Glucose 137 H, Hemoglobin A1c 7.9 H, Calcium 9.0 03/03/25 06:03: POC Glucose 140 H Medications at Discharge Home Medications lisinopril 40 mg tablet 40 mg PO DAILY HTN 04/15/13 Held on 03/04/25. Instructions: Hold lisinopril while taking Bactrim DS because of drug-drug interaction, risk for hyperkalemia. buprenorphine 8 mg-naloxone 2 mg sublingual film (Suboxone) 12 ea sublingual DAILY Opiate use 04/13/15 bisoprolol 5 mg-hydrochlorothiazide 6.25 mg tablet 1 tab PO DAILY HTN 05/22/16 amoxicillin 875 mg-potassium clavulanate 125 mg tablet 1 tab PO BID 1 week #14 tabs 03/04/25 metformin 500 mg tablet 500 mg PO BID 1 month #60 tabs 03/04/25 sulfamethoxazole 800 mg-trimethoprim 160 mg tablet (Bactrim DS) 1 tab PO BID #14 tabs 03/04/25 Weight / BMI Weight Weight: 325 lb 13.491 oz Body Mass Index (BMI) 44.1 ABG / Lab / Microbiology Data 03/03/25 05:43 03/03/25 05:43 Laboratory: Laboratory Results - last 24 hr 03/03/25 17:17: POC Glucose 160 H 03/03/25 19:00: S.aureus Protein A PCR NEGATIVE, MRSA (PCR) Negative 03/03/25 22:10: POC Glucose 167 H 03/04/25 02:24: Vancomycin Trough 6.6 03/04/25 06:32: POC Glucose 117 H 03/04/25 12:10: POC Glucose 151 H Microbiology: Microbiology 03/02/25 14:00 Blood Culture (Wb) - Right Wrist Blood Culture - Preliminary No growth in 48 hours. 03/02/25 13:25 Blood Culture (Wb) - Anticubital Left Blood Culture - Preliminary No growth in 48 hours. 03/02/25 Unknown Wound Abcess - Other Gram Stain - Final 03/02/25 Unknown Wound Abcess - Other Wound Culture - Preliminary No growth-Final to follow 03/02/25 13:45 Urine, Clean Catch Urine Culture - Final Culture exhibits no growth. D/C Instructions Weight Bearing Status: Weight bearing as tolerated Call your doctor if you observe: Fever of 101 or Higher, Coldness, Increased Pain, Numbness or Tingling, Change in Color, Inability to urinate, Inability to have a bowel movement, Shortness of breath, Dizziness, Fainting spells, Swelling in the ankles, Chest pain, Prolonged hiccupping, Increased palpitations (irregular heartbeat) and Calf discomfort DC O2, CPAP, BIPAP Needs Home O2 Discharge instructions: No When: IN 2 WEEKS Meaningful Use Info Meaningful Use Meaningful Use Diagnoses (Choose all that apply): None applicable Discharge Plan Admission Admit Date/Time: 03/02/25 15:02 Primary Reason for Your Visit: Left groin abscess Attending Provider: Favio Hercules Primary Care Provider: Chris Fritz Consulting Providers: Naresh Bella; Tony Pop; Tony Amaya Instructions Additional Instructions / Restrictions: Follow-up in wound clinic/plastic surgery in 1 week. Discharge Orders/Prescriptions Prescriptions: New sulfamethoxazole-trimethoprim [Bactrim DS] 800-160 mg tablet 1 tab PO BID Qty: 14 0RF amoxicillin-pot clavulanate 875-125 mg tablet 1 tab PO BID 7 Days Qty: 14 0RF metformin 500 mg tablet 500 mg PO BID 30 Days Qty: 60 0RF Continued buprenorphine-naloxone [Suboxone] 1 EACH film 12 ea sublingual DAILY bisoprolol-hydrochlorothiazide 1 TAB tablet 1 tab PO DAILY Held lisinopril 40 MG tablet 40 mg PO DAILY Hold Instructions: Hold lisinopril while taking Bactrim DS because of drug-drug interaction, risk for hyperkalemia. Referrals / Follow Up: Chris Fritz MD [Primary Care Provider, Family Practice] Tony Pop MD [Med Staff - Active Staff, Plastic Surgery] - Within 1 Week Referral Note: Follow-up for left groin abscess s/p I&D Disposition Disposition (needs filled in before D/C Order can be placed): Home, Self Care Charges/Coding Visit Charges Inpatient E&M: 42766 Disch Hosp >30min
[2025-03-04 16:00] VITALS: BP 130/74; PULSE 87; RESP 18; TEMP 36.8; O2SAT 98
--- NOTE | 2025-03-04 16:04 | PHA.DC.MR.R ---
Pharmacy CT Med Reconciliation Pharmacy Service has performed discharge medication reconciliation for this patient. The patient's discharge medication list was reviewed for discrepancies and discrepancies were resolved. Medications at Discharge Home Medications lisinopril 40 mg tablet 40 mg PO DAILY HTN 04/15/13 Held on 03/04/25. Instructions: Hold lisinopril while taking Bactrim DS because of drug-drug interaction, risk for hyperkalemia. buprenorphine 8 mg-naloxone 2 mg sublingual film (Suboxone) 12 ea sublingual DAILY Opiate use 04/13/15 bisoprolol 5 mg-hydrochlorothiazide 6.25 mg tablet 1 tab PO DAILY HTN 05/22/16 amoxicillin 875 mg-potassium clavulanate 125 mg tablet 1 tab PO BID 1 week #14 tabs 03/04/25 metformin 500 mg tablet 500 mg PO BID 1 month #60 tabs 03/04/25 sulfamethoxazole 800 mg-trimethoprim 160 mg tablet (Bactrim DS) 1 tab PO BID #14 tabs 03/04/25
== END 2025-03-04 15:50 | disposition home or self-care (01) ==
LOC: ED 14:51 → MS3 03-03 07:15
PROVIDERS: Emergency Provider Emergency Medicine; PCP Family Medicine; Visit Provider Internal Medicine
DX: E11.628 Type 2 diabetes mellitus with other skin complications (principal); E66.01 Morbid (severe) obesity due to excess calories; Z68.41 Body mass index [BMI] 40.0-44.9, adult; E11.65 Type 2 diabetes mellitus with hyperglycemia; E87.20 Acidosis, unspecified; L02.214 Cutaneous abscess of groin; E78.00 Pure hypercholesterolemia, unspecified; F17.210 Nicotine dependence, cigarettes, uncomplicated; I10 Essential (primary) hypertension; G47.33 Obstructive sleep apnea (adult) (pediatric); L03.314 Cellulitis of groin; J45.909 Unspecified asthma, uncomplicated; R11.2 Nausea with vomiting, unspecified; Z79.899 Other long term (current) drug therapy
CPT/HCPCS: 36415; 55100; 80048; 80053; 80202; 81001; 82962; 83036; 83605; 85025; 85610; 85730; 87040; 87070; 87077; 87086; 87186; 87205; 87640; 93005; 96365; 96366; 96367; 96368; 96372; 96375; 97802; 99221; 99285; A4216; G0378; J0295